=== PATIENT | male | born 1945 | race Caucasian/White ===

== ENCOUNTER → 2016-10-07 | Day surgery (SDC) | payer OTHER ==
[2016-09-08 14:07] VITALS: Ht 167.6 cm; Wt 76.8 kg
[~2016-10-07] VITALS: Ht 167.6 cm; Wt 76.8 kg
[~2016-10-07] MED LIST: 500ML BSS 0.3ML EPI 1:1000PF IRRIG ONE; ACETAMINOPHEN 325 MG TAB PO PRN; AMVISC PLUS 0.8ML SYRINGE INT OCU ONE; ATROPINE SULFATE 0.1 MG/ML 5ML SYR IV PRN; BSS FLUSH ONE; CARV25TA PO; CLOP1TAB54 PO; DIGO0.2518 PO; ENDOCOAT 0.85ML SYRINGE INT OCU ONE; EpHEDrine SULFATE INJ 50 MG/ML AMP IV PRN; EpINEphrine INJ 1MG/ML AMP 1 MG/ML AMP ONE; HYDR-5688 PO; LACTATED RINGER'S 1000ML 500 ML IV SCH; LEVO25TA5 PO; LIDOCAINE 4% OP SOLN DROP CHARGE ONE; LIDOCAINE 4% OP SOLN DROP CHARGE OPR SCH; LIDOCAINE HCL 1% MPF 2 ML VIAL ONE; LISI-729 PO; MIDAZOLAM HCL 1 MG/ML 2ML VIAL ONE; MIX: 4ML BSS 1ML EPI 1:1000 PF TOP ONE; MOXIFLOXACIN OPH SOLN PER DROP CHARGE ONE; NITR0.4S UT; POVIDONE-IODINE OP SOLN 30 ML BTL ONE; PROPARACAINE 0.5% OP SOLN PER DROP CHARGE OPR SCH; ROSU20TA PO; TOBRAMYCIN/DEXAMETHASONE OPH OINT PER APPLN CHARGE ONE
--- NOTE | 2016-10-07 06:45 | History & Physical Bridge - SC ---
H&P Re-Evaluation Bridge Note: I have examined the patient, reviewed the History & Physical and in the interval since the performance of the History & Physical I have noted the following changes of clinical significance: No changes noted. Right eye cataract surgery.
[2016-10-07] MEDS: PHENYLEPHRINE HCL 2.5% OP SOLN PER DROP CHARGE OPR SCH ×3 (07:15→07:25)
[2016-10-07] MEDS: TROPICAMIDE 1% OP SOLN PER DROP CHARGE OPR SCH ×3 (07:16→07:26)
[2016-10-07] MEDS: CYCLOPENTOLATE HCL 1% OP SOLN PER DROP CHARGE OPR SCH ×3 (07:17→07:27)
[2016-10-07] MEDS: MOXIFLOXACIN OPH SOLN PER DROP CHARGE OPR SCH ×3 (07:18→07:28)
--- NOTE | 2016-10-07 08:11 | [facility] Post Operative Brief Note ---
Immediate Operative Summary Operative Date Oct 07, 2016. Pre-Operative Diagnosis Right Eye Cataract Post-Operative Diagnosis same Procedure(s) Performed Right Cataract Phacoemulsification With Intraocular Lens Implant Surgeon Dr. Dinorah High Wet Finisher Wool Surgeon(s) 0 Estimated Blood Loss 0 Findings right cataract Specimens none Complication(s) None Disposition
--- NOTE | 2016-10-07 08:12 | [facility] Operative Report ---
Operative Report Date of Service Oct 07, 2016. Operative Report DATE OF OPERATION: 10/07/16 PREOPERATIVE DIAGNOSIS: Senile nuclear cataract, right eye POSTOPERATIVE DIAGNOSIS: Senile nuclear cataract, right eye PROCEDURE PERFORMED: Phacoemulsification with intraocular lens implantation, right eye SURGEON: Dr. Favian High ANESTHESIA: Topical with 1% intracameral lidocaine COMPLICATIONS: None DESCRIPTION OF PROCEDURE: After positively identifying the patient both verbally and by wristband in the preoperative area, the right eye was marked as the operative eye. The patient was then brought back to the operating room by the nursing staff where they were given a drop of Lidocaine and betadine into the operative eye. They were then sterilely prepped and draped in the standard fashion typical for ophthalmic surgery. Steri-strips were placed along the upper eyelids to keep the lashes back, and a lid speculum was placed into the operative eye. At this point, a documented time out was performed with members of the ophthalmology and nursing staffs all agreeing upon the correct patient, correct location for surgery, correct procedure, and correct type and power of intraocular lens to be implanted. The microscope was then swung into position. First, a paracentesis wound was made using a sideport blade. Then, in sequence, 1% preservative-free lidocaine followed by Endocoat viscoelastic was injected into the anterior chamber. Next , the main incision was made with a keratome blade in triplanar fashion. A sharp cystotome was introduced into the eye and used to create a tear in the anterior capsule, which was directed into a continuous curvilinear capsulorrhexis using Utrata forceps. Hydrodissection was then performed with BSS on a flat-tip cannula. Next, the phacoemulsification handpiece was introduced into the eye and used to remove the nucleus in a [id number] fashion. This was done without complication and then the irrigation-aspiration handpiece was introduced into the eye and used to remove all remaining cortical and epinuclear material. Amvisc was then injected into the anterior chamber as well as into the capsular bag and using the lens injector system, an MX60 20.0 D lens, serial number [id number], and expiration date 04/2019 was injected into the capsular bag and rotated into the correct position. Next, the irrigation- aspiration handpiece was used to remove all remaining Amvisc. BSS was used to hydrate the main wound, and then BSS was injected into the paracentesis site to reach physiologic pressure and then the main wound was checked and found to be watertight. The patient was given drops of Vigamox and Tobradex ointment into the operative eye, and then the surrounding area was cleaned and dried. A clear plastic shield was placed over the eye and the patient was then sat up and taken from the operating room by the nursing staff having tolerated the procedure well and suffering no complications. DISPOSITION: The patient was returned to the recovery room in stable condition. I attest to the content of the Intraoperative Record and any orders documented therein. Any exceptions are noted below.
--- NOTE | 2016-10-07 08:13 | Discharge Instructions-SurgCtr ---
Discharge Instructions Date of Service Oct 07, 2016. Visit Reason for Visit: Cataract Right Eye Discharge Discharge Diagnosis / Problem: right cataract Discharge Goals Goal(s): Decrease discomfort, Improve function Activity Recommendations Activity Limitations: as noted below Anesthesia . Post Anesthesia Instructions: If you have had General Anesthesia or IV Sedation: * Do not drive today. * Resume driving when surgeon permits. * Do not make important decisions or sign legal documents today. * Call surgeon for: 1. Temperature elevations greater than 101 degrees F. 2. Uncontrollable pain. 3. Excessive bleeding. 4. Persistent nausea and vomiting. 5. Medication intolerance (nausea, vomiting or rash). * For nausea and vomiting use only clear liquids such as: tea, soda, bouillon until nausea subsides, then gradually increase diet as tolerated. * If you have any concerns or questions, call your surgeon's office. If physician is unavailable and it is an emergency, call 911 or go to the nearest emergency room. . Instructions / Follow-Up Instructions / Follow-Up ACTIVITY RECOMMENDATIONS: * Light activities. * You may walk outside, read, watch television. * You may notice redness on the white part of the eye and some blurry vision - this is normal. MEDICATIONS: Resume previous medications unless instructed otherwise by your surgeon. Start all eye drops at 10 am today: * Eye drops (today): Prednisone - one drop in operative eye every 2 hours while awake Ofloxacin - one drop in operative eye every 2 hours while awake Ketorolac - one drop in operative eye 4 times daily SPECIAL CARE INSTRUCTIONS: * Tape plastic shield over eye to sleep at night. Call your doctor at with any concerns or problems. FOLLOW UP VISIT: Follow-up with Dr High at [facility] as scheduled. Diet Recommendations Home Diet: no limitations Procedures Procedures Performed: Right Cataract Phacoemulsification With Intraocular Lens Implant Pending Studies Studies pending at discharge: no Medical Emergencies . Who to Call and When: Medical Emergencies: If at any time you feel your situation is an emergency, please call 911 immediately. . Non-Emergent Contact Non-Emergency issues call your: Surgeon . . "Provider Documentation" section prepared by Favian High. .
[2016-10-07 08:14] VITALS: TEMP 36
[2016-10-07 08:45] VITALS: BP 139/95; PULSE 69; O2SAT 98
== END | disposition home or self-care (01) ==
LOC: X.SURG 06:44
PROVIDERS: ATTEND Ophthalmology
DX: H25.11 Age-related nuclear cataract, right eye (principal); Z68.27 Body mass index [BMI] 27.0-27.9, adult; Z79.02 Long term (current) use of antithrombotics/antiplatelets; I25.10 Atherosclerotic heart disease of native coronary artery without angina pectoris

== ENCOUNTER → 2016-10-28 | Outpatient (CLI) | payer OTHER ==
[~2016-10-28] MED LIST changes: -500ML BSS 0.3ML EPI 1:1000PF IRRIG ONE; -ACETAMINOPHEN 325 MG TAB PO PRN; -AMVISC PLUS 0.8ML SYRINGE INT OCU ONE; -ATROPINE SULFATE 0.1 MG/ML 5ML SYR IV PRN; -BSS FLUSH ONE; -ENDOCOAT 0.85ML SYRINGE INT OCU ONE; -EpHEDrine SULFATE INJ 50 MG/ML AMP IV PRN; -EpINEphrine INJ 1MG/ML AMP 1 MG/ML AMP ONE; -LACTATED RINGER'S 1000ML 500 ML IV SCH; -LIDOCAINE 4% OP SOLN DROP CHARGE ONE; -LIDOCAINE 4% OP SOLN DROP CHARGE OPR SCH; -LIDOCAINE HCL 1% MPF 2 ML VIAL ONE; -MIDAZOLAM HCL 1 MG/ML 2ML VIAL ONE; -MIX: 4ML BSS 1ML EPI 1:1000 PF TOP ONE; -MOXIFLOXACIN OPH SOLN PER DROP CHARGE ONE; -POVIDONE-IODINE OP SOLN 30 ML BTL ONE; -PROPARACAINE 0.5% OP SOLN PER DROP CHARGE OPR SCH; -TOBRAMYCIN/DEXAMETHASONE OPH OINT PER APPLN CHARGE ONE
== END | disposition home or self-care (01) ==
LOC: C.LABSPEC 11:16
PROVIDERS: ATTEND Ophthalmology
DX: H16.011 Central corneal ulcer, right eye (principal)

== ENCOUNTER 2019-01-03 15:14 | Inpatient (IN) ==
[2019-01-03] MEDS ORDERED: SODIUM CHLORIDE 0.9% 500 ML IV ONE (16:02)
[2019-01-03 16:18] LABS: Basophils # (auto) 0.02 K/uL (0-0.2); Basophils % (auto) 0.2 %; Eosinophils # (auto) 0.06 K/uL (0-0.5); Eosinophils % (auto) 0.6 %; Hematocrit (blood only) 36.2 % (42-52); Immature Granulocytes # (auto) 0.04 K/uL (0.00-0.02); Immature Granulocytes % (auto) 0.4 %; Lymphocytes # (auto) 1.52 K/uL (1.2-3.4); Lymphocytes % (auto) 15.4 %; Mean Corpuscular Hemoglobin 30.7 pg (25-34); Mean Corpuscular Hgb Conc 33.1 g/dL (32-36); Mean Corpuscular Volume 92.6 fL (80-100); Mean Platelet Volume 9.3 fL (7.4-10.4); Monocytes # (auto) 1.16 K/uL (0.11-0.59); Monocytes % (auto) 11.7 %; Neutrophils % (auto) 71.7 %; Platelet Count 194 K/uL (130-400); RDW Standard Deviation 47.1 fL (36.4-46.3); Red Blood Count 3.91 M/uL (4.7-6.1)
--- NOTE | 2019-01-03 16:28 | XRay Report ---
XR chest 1V portable CLINICAL HISTORY: Sepsis COMPARISON STUDY: Chest radiograph May 12, 2013. FINDINGS: A left subclavian biventricular pacer/AICD is in place. Cardiomediastinal silhouette is unr emarkable. There is no evidence for pulmonary edema. There is a trace right pleural effusion. There i s no pneumothorax. No consolidation is identified to suggest pneumonia. IMPRESSION: Trace right pleural effusion. Electronically signed by: Ho Viveros M.D. 01/03/2019 4:26 PM
[2019-01-03 16:39] LABS: Albumin Level 2.2 gm/dl (3.4-5.0); BUN Creatinine Ratio 24.8 (10-20); Creatinine Clr Calc Pharmacy 117.5 ml/min; Est GFR (African American) 119.7; Est GFR (Non-African American) 103.3; Magnesium 1.9 mg/dl (1.8-2.4); Potassium 4.3 mmol/L (3.5-5.1)
[2019-01-03] MEDS ORDERED: OPTIRAY 320 125ml IV PRN (16:46)
[2019-01-03 16:50] LABS: Albumin Globulin Ratio 0.5 (0.9-2); Bilirubin,Total 0.8 mg/dl (0.2-1); Globulin 4.3 gm/dl (2.5-4.0); Phosphorus 2.9 mg/dl (2.5-4.9); Thyroid Stimulating Hormone 0.207 uIu/ml (0.300-4.500); Total Protein 6.5 gm/dl (6.4-8.2)
[2019-01-03 17:03] LABS: Appearance Urine Clear (Clear); Bilirubin Urine Negative (Negative); Blood Urine Negative (Negative); Color Urine Yellow; Glucose Urine UA Negative (Negative); Ketones Urine Negative (Negative); Leukocyte Esterase Urine Negative (Negative); Nitrite Urine Negative (Negative); Protein Urine Negative (Negative); Specific Gravity Urine 1.021 (1.000-1.030); Urobilinogen Urine Negative (Negative); pH Urine 6.5 (4.5-7.5)
--- NOTE | 2019-01-03 17:03 | CT Scan Report ---
CT head/brain wo con CLINICAL HISTORY: 73 years-old Male presenting with ams. TECHNIQUE: Multidetector CT imaging of the head was performed without the use of intravenous contrast . IV contrast: None. One or more dose lowering techniques were used consistent with the principles of ALARA (as low as reasonably achievable), including automatic exposure control, mA or kV adjustment t o individual patient size, and/or use of iterative reconstruction. COMPARISON: 06/16/2012. CT DOSE (mGy.cm): The estimated cumulative dose is 1649.40 mGy.cm. FINDINGS: Cma topogram: Left subclavian implanted cardiac defibrillator. Proportional ventricular and sulcal prominence, likely age-related parenchymal volume loss. No hemorr earl. Encephalomalacia in the lateral aspect of the right cerebellar hemisphere. Periventricular and subcortical white matter hypoattenuation nonspecific though likely chronic small vessel ischemic corado ge. No acute territorial infarct. No mass effect or midline shift. No extra-axial fluid collection. P aranasal sinuses and mastoid air cells clear. Right occipital craniectomy. IMPRESSION: 1. Chronic small vessel ischemic change and right cerebellar hemisphere and septal malacia unchanged from prior exam. No acute intracranial abnormality. Electronically signed by: Fabian Tuttle M.D. 01/03/2019 5:02 PM
[2019-01-03 17:05] LABS: T4 Free Thyroxine 1.27 ng/dl (0.8-1.6)
--- NOTE | 2019-01-03 17:11 | CT Scan Report ---
CT abd pelvis IV con only CLINICAL HISTORY: 73 years-old Male presenting with AMS, fever, sob, h/o spinal abscess. TECHNIQUE: Multidetector CT of the abdomen and pelvis was performed after the administration of intra venous contrast. IV contrast: 119 mL of Optiray 320. One or more dose lowering techniques were used c onsistent with the principles of ALARA (as low as reasonably achievable), including automatic exposur e control, mA or kV adjustment to individual patient size, and/or use of iterative reconstruction. COMPARISON: 06/08/2012. CT DOSE (mGy.cm): The estimated cumulative dose is 1649.40. FINDINGS: Climatology Professor topogram: Left subclavian implanted cardiac defibrillator. Lung bases: Defibrillator leads to the residual pin image, right ventricular apex, and coronary sinus . Aortic valve and coronary artery calcification. Small right pleural effusion. Dependent change in t he right lower lobe likely passive atelectasis. Liver: Normal morphology. Density suggestive of hepatic steatosis. No focal lesion. Patent hepatic va sculature. Biliary: No intrahepatic or extrahepatic biliary ductal dilatation. Gallbladder wall thickening sugge sted though there is significant motion artifact in the upper abdomen. The gallbladder is nondistende d. Pancreas: Normal. Spleen: Normal. Adrenal glands: Normal. Kidneys and ureters: Few cysts suggested in the left kidney. Renal parenchyma otherwise normal. No ne phrolithiasis or hydronephrosis. Ureters nondistended. Bladder: Circumferential bladder wall thickening. Bai catheter decompresses the urinary bladder. Pelvic organs: Prostate and seminal vesicles normal. Bowel: Large stool burden in the rectum with a mild stool burden in the remainder of the colon. No re ctal wall thickening or perirectal fat infiltration. Few scattered colonic diverticula noted. The zak endix is normal. No bowel obstruction. Peritoneal cavity: No free fluid or intraperitoneal gas. Lymph nodes: No enlarged lymph nodes in the abdomen or pelvis. Vasculature: Atherosclerosis of the tortuous and mildly ectatic abdominal aorta, which measures up to 3.2 cm in diameter. Prominent mural thrombus/noncalcified plaque (series 8 image 151). Abdominal wall: Small fat-containing inguinal hernias right greater than left. Mild body wall edema. Musculoskeletal: Extensive postsurgical changes in the spine with laminectomy defects. Few punctate m etallic foci may represent catheters or other prior implanted material. Extensive overlying infiltrat radha changes compatible with scarring. The spinal canal and paraspinal region is suboptimally assessed by CT. No gross evidence of a large rim-enhancing collection is suggest abscess though there is limi raj sensitivity for this diagnosis. IMPRESSION: 1. Limited sensitivity for the diagnosis of spinal abscess by CT. If there is continuing clinical co ncern for this, contrast enhanced MRI would be recommended. 2. Significant degenerative change and postsurgical change of the spine makes evaluation limited. 3. Metallic foreign bodies within the spinal canal may relate to a current or prior implanted cathet er or other device. 4. Abdominal aortic aneurysm measuring up to 3.2 cm with significant tortuosity and mural thrombus/n oncalcified plaque. 5. Hepatic steatosis. 6. Stool burden suggests constipation most prominently in the rectum. 7. Circumferential bladder wall thickening may indicate chronic bladder outlet obstruction or cystit is. Correlate with urinalysis. Electronically signed by: Fabian Tuttle M.D. 01/03/2019 5:10 PM
--- NOTE | 2019-01-03 17:16 | CT Scan Report ---
CT ANGIOGRAPHY OF THE CHEST, PULMONARY EMBOLUS PROTOCOL CLINICAL HISTORY: Fever. Shortness of breath. History of spinal abscess. COMPARISON STUDY: Chest radiograph 05/12/2013 and January 03, 2019. TECHNIQUE: Following IV administration of 119 mL of Optiray-320, helical axial images of the chest we re obtained utilizing the pulmonary embolus protocol. Maximal intensity projections and sagittal and coronal reformats were viewed on an independent 3D workstation. IV contrast was administered withou t complication. Automated exposure control was utilized for the study. A dose lowering technique wa s utilized adhering to the principles of ALARA. FINDINGS: The central pulmonary arteries are mildly dilated. No central pulmonary emboli are identifi ed. This exam is significantly compromised by respiratory motion artifact. The lobar, segmental and s ubsegmental pulmonary arteries are suboptimally assessed on this exam. A left subclavian biventricula r pacer/AICD is in place. The heart is mildly enlarged. There is no pericardial effusion. There is ex tensive coronary artery calcification and extensive aortic valvular calcification. No enlarged thorac ic lymph nodes are present. A small right pleural effusion is noted. There is no pneumothorax. Modera te to severe emphysema is noted. Note is made of an irregular solid and groundglass left lower lobe n odule that measures 2.8 x 1.9 cm. There is suspected associated fissural retraction. Right lower lobe opacity favors atelectasis. The central airways are patent. No suspicious osseous lesions are noted. Right lobe thyroid nodule is noted. Postoperative findings within the thoracolumbar spine are subopt imally assessed by CT. Osseous irregularity of the lower thoracic and lumbar spine is noted. The abdo men and pelvis will be reported separately. IMPRESSION: 1. No central pulmonary emboli. Remainder of pulmonary arteries inadequately assessed due to respirat ory motion artifact. 2. 2.8 x 1.9 cm irregular left lower lobe pulmonary nodule highly suggestive of a primary lung malign karla. Pulmonary consultation is recommended. 3. Moderate to severe emphysema. 4. Small right pleural effusion. 5. Postoperative findings within the thoracolumbar spine which are suboptimally assessed by CT. Subop timal evaluation of the spinal canal given CT. Electronically signed by: Ho Viveros M.D. 01/03/2019 5:14 PM
[2019-01-03 17:44] LABS: INR 1.2 (0.9-1.1); Partial Thromboplastin Time 27.6 Seconds (21.0-31.0); Prothrombin Time 12.3 Seconds (9.0-12.0)
[2019-01-03] MEDS ORDERED: PIPERACILLIN/TAZOBACTAM 4.5 GM/120 ML BAG IV ONE (19:05)
[2019-01-03] MEDS ORDERED: VANCOMYCIN CONSULT ACTIVE PRN (19:05)
[2019-01-03] MEDS ORDERED: VANCOMYCIN HCL 1,500 MG in SODIUM CHLORIDE 0.9% 500 ML IV ONE (19:05)
[2019-01-03] MEDS ORDERED: ACETAMINOPHEN 325 MG TAB PO STA (19:29)
--- NOTE | 2019-01-03 19:50 | Emergency Department Note ---
Entered by Darin Patel acting as a scribe for Aditya Melendez MD History of Present Illness General Chief complaint: Altered Mental Status Stated complaint: AMS, ALOC, URINARY SX Time Seen by Provider: 01/03/19 15:42 Source: patient History of Present Illness Provider complaint: AMS Onset (ago): hour(s) less than 1 Location: head Radiation: non-radiation Pain Consistency: + constant Relieved By: + none Exacerbated By: + none Associated symptoms: + denies other symptoms The patient is a 73 y/o male who presents to the emergency department for evaluation of constant altered mental status that began prior to arrival. The patient states that he feels a little confused. The patient does not believe he uses oxygen at home. He notes that his legs are a little swollen. He denies a cough, congestion, vomiting, and any other symptoms. More detailed history was provided by the patient's son who later arrived at the bedside saying that the patient has a worsening decline in his functional status over the past couple of weeks with intermittent confusion over the past 5 days. Patient symptoms occur in the setting of recent admission in November to [facility] for question of a spinal abscess which was evaluated by neurosurgery and it was determined that surgery was not required and was treated with antibiotics with improvement and subsequently referred to the wound center for continued monitoring. The son confirms patient's prior remote h/o neuroma resection with subsequent chronic right facial droop and ptosis. Home Medications Home Medications Medication Instructions Recorded Confirmed Type acetaminophen 325 mg capsule 650 mg PO Q4H PRN cap 12/06/18 01/03/19 History bisacodyl 10 mg rectal suppository 10 mg MO DAILY PRN 12/06/18 01/03/19 History carvedilol 12.5 mg tablet 12.5 mg PO BID 12/06/18 01/03/19 History clopidogrel 75 mg tablet 75 mg PO DAILY 12/06/18 01/03/19 History digoxin 250 mcg tablet 250 mcg PO DAILY 12/06/18 01/03/19 History enoxaparin 40 mg/0.4 mL 40 mg SQ DAILY 12/06/18 01/03/19 History subcutaneous syringe lisinopril 5 mg tablet 5 mg PO DAILY 12/06/18 01/03/19 History lovastatin 10 mg tablet 10 mg PO DAILY 12/06/18 01/03/19 History mirtazapine 7.5 mg tablet 7.5 mg PO DAILY 12/06/18 01/03/19 History polyethylene glycol 3350 17 8.5 gm PO DAILY PRN 12/06/18 01/03/19 History gram/dose oral powder pravastatin 10 mg tablet 10 mg PO DAILY 12/06/18 01/03/19 History sennosides 8.6 mg-docusate sodium 1 tab PO BID PRN 12/06/18 01/03/19 History 50 mg tablet hydrocodone-acetaminophen 1 tab PO Q6H PRN 01/03/19 01/03/19 History levothyroxine 50 mcg PO DAILY 01/03/19 01/03/19 History rosuvastatin 20 mg PO DAILY 01/03/19 01/03/19 History Allergies Allergy/AdvReac Type Severity Reaction Status Date / Time No Known Allergies Allergy Verified 01/03/19 16:56 Past Med/Surg History Medical History A-fib (Chronic) CHF (congestive heart failure) (Chronic) Facial droop (Chronic) Ischemic cardiomyopathy (Chronic) Pacemaker (Chronic) TIA (transient ischemic attack) (Chronic) 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 pt confused. current occupational status: disabled Feels Safe at Home: Yes Smoking Status: Unknown if ever smoked Review of Systems See HPI for pertinent positives & negatives. and A total of 10 systems reviewed and were otherwise negative Physical Exam Vital Signs Vital Signs - 24 hr 01/03/19 15:33 01/03/19 15:34 01/03/19 15:40 Temperature 37.7 C H Temperature Source Rectal Sepsis Recent Fever Within 48 Hours No Sepsis New/Unexplained Change in Mental Status Yes Sepsis Action Taken by Nursing No Action Required Oxygen Flow Rate - Titration Pulse Oximetry Post Tiitration Pulse Rate 72 71 74 Pulse Rate [Apical] Pulse Rate from SpO2 Sensor 71 71 Respiratory Rate 15 17 18 Respiratory Effort / Characteristics Non-Labored Spontaneous Respiratory Depth Normal Blood Pressure 100/47 L 100/49 L Blood Pressure [Left Arm] Blood Pressure Mean 64 66 Blood Pressure Mean [Left Arm] Pulse Oximetry 88 L 90 88 L Oxygen Delivery Method Room Air Oxygen Flow Rate 01/03/19 15:45 01/03/19 15:46 01/03/19 15:52 Temperature Temperature Source Sepsis Recent Fever Within 48 Hours Sepsis New/Unexplained Change in Mental Status Sepsis Action Taken by Nursing Oxygen Flow Rate - Titration 2 Pulse Oximetry Post Tiitration 94 Pulse Rate 67 68 Pulse Rate [Apical] 67 Pulse Rate from SpO2 Sensor 66 66 Respiratory Rate 17 13 18 Respiratory Effort / Characteristics Respiratory Depth Normal Blood Pressure 91/47 L Blood Pressure [Left Arm] 91/47 L Blood Pressure Mean 61 Blood Pressure Mean [Left Arm] 61 Pulse Oximetry 93 94 96 Oxygen Delivery Method Nasal Cannula Oxygen Flow Rate 2 01/03/19 16:00 01/03/19 16:01 01/03/19 16:07 Temperature Temperature Source Sepsis Recent Fever Within 48 Hours Sepsis New/Unexplained Change in Mental Status Sepsis Action Taken by Nursing Oxygen Flow Rate - Titration Pulse Oximetry Post Tiitration Pulse Rate Pulse Rate [Apical] Pulse Rate from SpO2 Sensor 63 66 63 Respiratory Rate Respiratory Effort / Characteristics Respiratory Depth Blood Pressure 115/38 L 97/43 L Blood Pressure [Left Arm] Blood Pressure Mean 63 61 Blood Pressure Mean [Left Arm] Pulse Oximetry 93 96 95 Oxygen Delivery Method Oxygen Flow Rate 01/03/19 16:11 01/03/19 16:15 01/03/19 16:17 Temperature Temperature Source Sepsis Recent Fever Within 48 Hours Sepsis New/Unexplained Change in Mental Status Sepsis Action Taken by Nursing Oxygen Flow Rate - Titration Pulse Oximetry Post Tiitration Pulse Rate 79 66 Pulse Rate [Apical] Pulse Rate from SpO2 Sensor 79 65 Respiratory Rate Respiratory Effort / Characteristics Respiratory Depth Blood Pressure Blood Pressure [Left Arm] Blood Pressure Mean Blood Pressure Mean [Left Arm] Pulse Oximetry 96 94 97 Oxygen Delivery Method Nasal Cannula Oxygen Flow Rate 2 01/03/19 16:29 01/03/19 16:30 01/03/19 16:31 Temperature Temperature Source Sepsis Recent Fever Within 48 Hours Sepsis New/Unexplained Change in Mental Status Sepsis Action Taken by Nursing Oxygen Flow Rate - Titration Pulse Oximetry Post Tiitration Pulse Rate 69 78 64 Pulse Rate [Apical] Pulse Rate from SpO2 Sensor 69 66 64 Respiratory Rate 18 19 14 Respiratory Effort / Characteristics Respiratory Depth Blood Pressure 109/50 L 100/69 Blood Pressure [Left Arm] Blood Pressure Mean 69 79 Blood Pressure Mean [Left Arm] Pulse Oximetry 97 97 98 Oxygen Delivery Method Oxygen Flow Rate 01/03/19 17:03 01/03/19 17:07 01/03/19 17:08 Temperature Temperature Source Sepsis Recent Fever Within 48 Hours Sepsis New/Unexplained Change in Mental Status Sepsis Action Taken by Nursing Oxygen Flow Rate - Titration Pulse Oximetry Post Tiitration Pulse Rate 78 77 70 Pulse Rate [Apical] Pulse Rate from SpO2 Sensor 77 70 Respiratory Rate 23 20 Respiratory Effort / Characteristics Respiratory Depth Blood Pressure 134/55 L Blood Pressure [Left Arm] Blood Pressure Mean 81 Blood Pressure Mean [Left Arm] Pulse Oximetry 97 98 Oxygen Delivery Method Oxygen Flow Rate 01/03/19 17:15 01/03/19 17:30 01/03/19 17:31 Temperature Temperature Source Sepsis Recent Fever Within 48 Hours Sepsis New/Unexplained Change in Mental Status Sepsis Action Taken by Nursing Oxygen Flow Rate - Titration Pulse Oximetry Post Tiitration Pulse Rate 66 64 Pulse Rate [Apical] Pulse Rate from SpO2 Sensor 65 63 64 Respiratory Rate 18 24 24 Respiratory Effort / Characteristics Respiratory Depth Blood Pressure 121/42 L Blood Pressure [Left Arm] Blood Pressure Mean 68 Blood Pressure Mean [Left Arm] Pulse Oximetry 97 100 97 Oxygen Delivery Method Oxygen Flow Rate 01/03/19 17:32 01/03/19 17:45 01/03/19 18:00 Temperature Temperature Source Sepsis Recent Fever Within 48 Hours Sepsis New/Unexplained Change in Mental Status Sepsis Action Taken by Nursing Oxygen Flow Rate - Titration Pulse Oximetry Post Tiitration Pulse Rate 60 79 Pulse Rate [Apical] Pulse Rate from SpO2 Sensor 70 60 83 Respiratory Rate 20 19 22 Respiratory Effort / Characteristics Respiratory Depth Blood Pressure 120/43 L Blood Pressure [Left Arm] Blood Pressure Mean 68 Blood Pressure Mean [Left Arm] Pulse Oximetry 96 97 92 Oxygen Delivery Method Oxygen Flow Rate 01/03/19 18:14 01/03/19 18:15 01/03/19 18:30 Temperature Temperature Source Sepsis Recent Fever Within 48 Hours Sepsis New/Unexplained Change in Mental Status Sepsis Action Taken by Nursing Oxygen Flow Rate - Titration Pulse Oximetry Post Tiitration Pulse Rate 65 70 67 Pulse Rate [Apical] Pulse Rate from SpO2 Sensor 66 70 77 Respiratory Rate 23 19 23 Respiratory Effort / Characteristics Respiratory Depth Blood Pressure 103/44 L Blood Pressure [Left Arm] Blood Pressure Mean 63 Blood Pressure Mean [Left Arm] Pulse Oximetry 98 97 96 Oxygen Delivery Method Oxygen Flow Rate 01/03/19 18:31 01/03/19 18:38 01/03/19 18:45 Temperature Temperature Source Sepsis Recent Fever Within 48 Hours Sepsis New/Unexplained Change in Mental Status Sepsis Action Taken by Nursing Oxygen Flow Rate - Titration Pulse Oximetry Post Tiitration Pulse Rate 64 Pulse Rate [Apical] Pulse Rate from SpO2 Sensor 64 67 67 Respiratory Rate 22 Respiratory Effort / Characteristics Respiratory Depth Blood Pressure 125/49 L 123/58 L 116/53 L Blood Pressure [Left Arm] Blood Pressure Mean 74 79 74 Blood Pressure Mean [Left Arm] Pulse Oximetry 96 97 98 Oxygen Delivery Method Oxygen Flow Rate 01/03/19 19:00 01/03/19 19:15 01/03/19 19:30 Temperature Temperature Source Sepsis Recent Fever Within 48 Hours Sepsis New/Unexplained Change in Mental Status Sepsis Action Taken by Nursing Oxygen Flow Rate - Titration Pulse Oximetry Post Tiitration Pulse Rate Pulse Rate [Apical] Pulse Rate from SpO2 Sensor 63 67 62 Respiratory Rate Respiratory Effort / Characteristics Respiratory Depth Blood Pressure 113/52 L 121/63 Blood Pressure [Left Arm] Blood Pressure Mean 72 82 Blood Pressure Mean [Left Arm] Pulse Oximetry 96 98 96 Oxygen Delivery Method Oxygen Flow Rate 01/03/19 19:45 01/03/19 20:00 01/03/19 20:02 Temperature Temperature Source Sepsis Recent Fever Within 48 Hours Sepsis New/Unexplained Change in Mental Status Sepsis Action Taken by Nursing Oxygen Flow Rate - Titration Pulse Oximetry Post Tiitration Pulse Rate Pulse Rate [Apical] Pulse Rate from SpO2 Sensor 68 69 65 Respiratory Rate Respiratory Effort / Characteristics Respiratory Depth Blood Pressure 118/59 L 110/57 L Blood Pressure [Left Arm] Blood Pressure Mean 78 74 Blood Pressure Mean [Left Arm] Pulse Oximetry 94 98 96 Oxygen Delivery Method Oxygen Flow Rate GENERAL: Awake, alert, chronically ill-appearing, in no distress HENT: Normocephalic, atraumatic. Oropharynx unremarkable. Mucous membranes dry. EYES: Normal conjunctiva. Sclera non-icteric. NECK: Supple. No nuchal rigidity. FROM. No JVD. RESPIRATORY: Clear to auscultation bilaterally CARDIAC: Regular rate, normal rhythm. Extremities warm and well perfused. Pulses equal. ABDOMEN: Soft, non-distended. No tenderness to palpation. No rebound or guarding. No masses. RECTAL: Deferred. MUSCULOSKELETAL: Chest examination reveals no tenderness. The back is symmetrical on inspection without obvious abnormality. There is no CVA tender ness to palpation. No joint edema. Punctate tunneling ulcer of the back, pressure sore of the right mid-medial calf. LOWER EXTREMITIES: Calves are equal size bilaterally and non-tender. 2+ bilateral pitting edema. No discoloration. NEURO: Normal sensorium. No new sensory or motor deficits noted. Chronic right facial droop/ptosis. 4/5 strength BUE. 2-3/5 strength BLE SKIN: No rash or jaundice noted. Course 1552: Past medical records reviewed. The patient was evaluated in room C03. A complete history and physical exam was performed. 1626: History reviewed from outside hospital showed: spine tumor S\P 40 years ago, Chronic right facial droop, Chronic lower extremity edema, S/P ICD, Pacemaker for ischemic cardiomyopathy. 1844: I checked on the patient and updated him on his results. Administered Medications Carvedilol (Coreg) 12.5 mg PO BID LADAN Stop: 02/02/19 22:34 Last Admin: 01/03/19 23:09 Dose: Not Given Documented by: [id number] Lactated Ringer's (Lr) 1,000 mls @ 50 mls/hr IV .Q20H ONE Stop: 01/04/19 18:34 Last Admin: 01/03/19 23:01 Dose: 50 mls/hr Documented by: [id number] Discontinued Medications Acetaminophen (Tylenol) 650 mg PO NOW STA Stop: 01/03/19 19:30 Last Admin: 01/03/19 19:45 Dose: 650 mg Documented by: [id number] Sodium Chloride (Nss) 500 mls @ 999 mls/hr IV .Q31M ONE Stop: 01/03/19 16:32 Last Infusion: 01/03/19 17:15 Dose: 0 mls/hr Documented by: [id number] Admin: 01/03/19 16:42 Dose: 999 mls/hr Documented by: [id number] Piperacillin Sod/Tazobactam Sod (Zosyn) 4.5 gm in 120 mls @ 30 mls/hr IV NOW ONE Stop: 01/03/19 23:04 Last Infusion: 01/03/19 23:34 Dose: 0 mls/hr Documented by: [id number] Admin: 01/03/19 19:15 Dose: 30 mls/hr Documented by: [id number] Vancomycin HCl 1,500 mg/ (Sodium Chloride) 530 mls @ 200 mls/hr IV NOW ONE Stop: 01/03/19 21:43 Last Infusion: 01/03/19 23:09 Dose: 0 mls/hr Documented by: [id number] Admin: 01/03/19 20:03 Dose: 200 mls/hr Documented by: [id number] Ioversol (Optiray 320 125ml) 119 ml IV ONCE PRN PRN Reason: Interaction Checking Stop: 01/07/19 16:45 Last Admin: 01/03/19 16:47 Dose: 119 ml Documented by: [id number] Medical Decision Making Differential Diagnosis Differential includes acute coronary syndrome, myocardial infarction, CVA, TIA, anemia, infection, pneumonia, UTI, pyelonephritis, poor nutrition, dehydration, electrolyte disturbance,hypoglycemia. Medical Records Attestation: I reviewed the patient's medical records. Home Medications Current Medication List: was personally reviewed by me Laboratory Data Attestation: I reviewed the patient's lab results. Result diagrams: 01/03/19 14:40 01/03/19 14:40 Lab Results 01/03/19 01/03/19 01/03/19 Range/Units 14:40 14:40 14:40 WBC 9.90 (4.8-10.8) K/uL RBC 3.91 L (4.7-6.1) M/uL Hgb 12.0 L (14.0-18.0) g/dL Hct 36.2 L (42-52) % MCV 92.6 (80-100) fL MCH 30.7 (25-34) pg MCHC 33.1 (32-36) g/dL RDW Std Deviation 47.1 H (36.4-46.3) fL RDW Coeff of Wilfrid 14.0 (11.5-14.5) % Plt Count 194 (130-400) K/uL MPV 9.3 (7.4-10.4) fL Immature Gran % (Auto) 0.4 % Neut % (Auto) 71.7 % Lymph % (Auto) 15.4 % [place] % (Auto) 11.7 % Eos % (Auto) 0.6 % Baso % (Auto) 0.2 % Reticulocyte % (Auto) (0.5-2.0) % Immature Gran # (Auto) 0.04 H (0.00-0.02) K/uL Neut # (Auto) 7.10 H (1.4-6.5) K/uL Lymph # (Auto) 1.52 (1.2-3.4) K/uL [place] # (Auto) 1.16 H (0.11-0.59) K/uL Eos # (Auto) 0.06 (0-0.5) K/uL Baso # (Auto) 0.02 (0-0.2) K/uL Reticulocyte # (0.02-0.10) 10^6/uL PT Cancelled INR Cancelled APTT Cancelled PTT Ratio Cancelled Sodium 140 (136-145) mmol/L Potassium 4.3 (3.5-5.1) mmol/L Chloride 103 (98-107) mmol/L Carbon Dioxide 29 (21-32) mmol/L Anion Gap 8.0 (3-11) BUN 14 (7-18) mg/dl Creatinine 0.57 L (0.6-1.4) mg/dl Est Cr Clr Drug Dosing 117.5 ml/min Est GFR ( Amer) 119.7 Est GFR (Non-Af Amer) 103.3 BUN/Creatinine Ratio 24.8 H (10-20) Glucose 95 (70-99) mg/dl Lactate (0.4-2.0) mmol/L Calcium 8.0 L (8.5-10.1) mg/dl Phosphorus 2.9 (2.5-4.9) mg/dl Magnesium 1.9 (1.8-2.4) mg/dl Iron (35-175) mcg/dl TIBC (250-450) mcg/dl Transferrin (200-360) mg/dl Ferritin (8-388) ng/ml Total Bilirubin 0.8 (0.2-1) mg/dl AST 44 H (15-37) U/L ALT 42 (12-78) U/L Alkaline Phosphatase 161 H (45-117) U/L Ammonia (11-32) umol/L Total Creatine Kinase 340 H (39-308) U/L Troponin I (0-0.045) ng/ml NT-Pro-B Natriuret Pep 720 (0-900) pg/ml Total Protein 6.5 (6.4-8.2) gm/dl Albumin 2.2 L (3.4-5.0) gm/dl Globulin 4.3 H (2.5-4.0) gm/dl Albumin/Globulin Ratio 0.5 L (0.9-2) Vitamin B12 (211-911) pg/ml Folate (>5.38) ng/ml Procalcitonin (0-0.5) ng/ml TSH 0.207 L (0.300-4.500) uIu/ml Free T4 1.27 (0.8-1.6) ng/dl Total T3 (0.60-1.81) ng/ml Urine Color Urine Appearance (Clear) Urine pH (4.5-7.5) Ur Specific [place] (1.000-1.030) Urine Protein (Negative) Urine Glucose (UA) (Negative) Urine Ketones (Negative) Urine Blood (Negative) Urine Nitrite (Negative) Urine Bilirubin (Negative) Urine Urobilinogen (Negative) Ur Leukocyte Esterase (Negative) Digoxin (0.8-2.0) ng/ml Blood Type Antibody Screen 01/03/19 01/03/19 01/03/19 Range/Units 14:40 15:30 17:14 WBC (4.8-10.8) K/uL RBC (4.7-6.1) M/uL Hgb (14.0-18.0) g/dL Hct (42-52) % MCV (80-100) fL MCH (25-34) pg MCHC (32-36) g/dL RDW Std Deviation (36.4-46.3) fL RDW Coeff of Wilfrid (11.5-14.5) % Plt Count (130-400) K/uL MPV (7.4-10.4) fL Immature Gran % (Auto) % Neut % (Auto) % Lymph % (Auto) % [place] % (Auto) % Eos % (Auto) % Baso % (Auto) % Reticulocyte % (Auto) (0.5-2.0) % Immature Gran # (Auto) (0.00-0.02) K/uL Neut # (Auto) (1.4-6.5) K/uL Lymph # (Auto) (1.2-3.4) K/uL [place] # (Auto) (0.11-0.59) K/uL Eos # (Auto) (0-0.5) K/uL Baso # (Auto) (0-0.2) K/uL Reticulocyte # (0.02-0.10) 10^6/uL PT INR APTT PTT Ratio Sodium (136-145) mmol/L Potassium (3.5-5.1) mmol/L Chloride (98-107) mmol/L Carbon Dioxide (21-32) mmol/L Anion Gap (3-11) BUN (7-18) mg/dl Creatinine (0.6-1.4) mg/dl Est Cr Clr Drug Dosing ml/min Est GFR ( Amer) Est GFR (Non-Af Amer) BUN/Creatinine Ratio (10-20) Glucose (70-99) mg/dl Lactate 1.0 (0.4-2.0) mmol/L Calcium (8.5-10.1) mg/dl Phosphorus (2.5-4.9) mg/dl Magnesium (1.8-2.4) mg/dl Iron (35-175) mcg/dl TIBC (250-450) mcg/dl Transferrin (200-360) mg/dl Ferritin (8-388) ng/ml Total Bilirubin (0.2-1) mg/dl AST (15-37) U/L ALT (12-78) U/L Alkaline Phosphatase (45-117) U/L Ammonia (11-32) umol/L Total Creatine Kinase (39-308) U/L Troponin I (0-0.045) ng/ml NT-Pro-B Natriuret Pep (0-900) pg/ml Total Protein (6.4-8.2) gm/dl Albumin (3.4-5.0) gm/dl Globulin (2.5-4.0) gm/dl Albumin/Globulin Ratio (0.9-2) Vitamin B12 (211-911) pg/ml Folate (>5.38) ng/ml Procalcitonin (0-0.5) ng/ml TSH (0.300-4.500) uIu/ml Free T4 (0.8-1.6) ng/dl Total T3 (0.60-1.81) ng/ml Urine Color Yellow Urine Appearance Clear (Clear) Urine pH 6.5 (4.5-7.5) Ur Specific [place] 1.021 (1.000-1.030) Urine Protein Negative (Negative) Urine Glucose (UA) Negative (Negative) Urine Ketones Negative (Negative) Urine Blood Negative (Negative) Urine Nitrite Negative (Negative) Urine Bilirubin Negative (Negative) Urine Urobilinogen Negative (Negative) Ur Leukocyte Esterase Negative (Negative) Digoxin 1.7 (0.8-2.0) ng/ml Blood Type Antibody Screen 01/03/19 01/03/19 01/03/19 Range/Units 17:14 19:52 19:52 WBC (4.8-10.8) K/uL RBC (4.7-6.1) M/uL Hgb (14.0-18.0) g/dL Hct (42-52) % MCV (80-100) fL MCH (25-34) pg MCHC (32-36) g/dL RDW Std Deviation (36.4-46.3) fL RDW Coeff of Wilfrid (11.5-14.5) % Plt Count (130-400) K/uL MPV (7.4-10.4) fL Immature Gran % (Auto) % Neut % (Auto) % Lymph % (Auto) % [place] % (Auto) % Eos % (Auto) % Baso % (Auto) % Reticulocyte % (Auto) (0.5-2.0) % Immature Gran # (Auto) (0.00-0.02) K/uL Neut # (Auto) (1.4-6.5) K/uL Lymph # (Auto) (1.2-3.4) K/uL [place] # (Auto) (0.11-0.59) K/uL Eos # (Auto) (0-0.5) K/uL Baso # (Auto) (0-0.2) K/uL Reticulocyte # (0.02-0.10) 10^6/uL PT 12.3 H INR 1.2 H APTT 27.6 PTT Ratio 1.0 Sodium (136-145) mmol/L Potassium (3.5-5.1) mmol/L Chloride (98-107) mmol/L Carbon Dioxide (21-32) mmol/L Anion Gap (3-11) BUN (7-18) mg/dl Creatinine (0.6-1.4) mg/dl Est Cr Clr Drug Dosing ml/min Est GFR ( Amer) Est GFR (Non-Af Amer) BUN/Creatinine Ratio (10-20) Glucose (70-99) mg/dl Lactate (0.4-2.0) mmol/L Calcium (8.5-10.1) mg/dl Phosphorus (2.5-4.9) mg/dl Magnesium (1.8-2.4) mg/dl Iron (35-175) mcg/dl TIBC (250-450) mcg/dl Transferrin (200-360) mg/dl Ferritin (8-388) ng/ml Total Bilirubin (0.2-1) mg/dl AST (15-37) U/L ALT (12-78) U/L Alkaline Phosphatase (45-117) U/L Ammonia (11-32) umol/L Total Creatine Kinase (39-308) U/L Troponin I < 0.015 (0-0.045) ng/ml NT-Pro-B Natriuret Pep (0-900) pg/ml Total Protein (6.4-8.2) gm/dl Albumin (3.4-5.0) gm/dl Globulin (2.5-4.0) gm/dl Albumin/Globulin Ratio (0.9-2) Vitamin B12 (211-911) pg/ml Folate (>5.38) ng/ml Procalcitonin (0-0.5) ng/ml TSH (0.300-4.500) uIu/ml Free T4 (0.8-1.6) ng/dl Total T3 0.88 (0.60-1.81) ng/ml Urine Color Urine Appearance (Clear) Urine pH (4.5-7.5) Ur Specific [place] (1.000-1.030) Urine Protein (Negative) Urine Glucose (UA) (Negative) Urine Ketones (Negative) Urine Blood (Negative) Urine Nitrite (Negative) Urine Bilirubin (Negative) Urine Urobilinogen (Negative) Ur Leukocyte Esterase (Negative) Digoxin (0.8-2.0) ng/ml Blood Type Antibody Screen 01/03/19 01/03/19 01/03/19 Range/Units 19:52 19:52 19:52 WBC (4.8-10.8) K/uL RBC (4.7-6.1) M/uL Hgb (14.0-18.0) g/dL Hct (42-52) % MCV (80-100) fL MCH (25-34) pg MCHC (32-36) g/dL RDW Std Deviation (36.4-46.3) fL RDW Coeff of Wilfrid (11.5-14.5) % Plt Count (130-400) K/uL MPV (7.4-10.4) fL Immature Gran % (Auto) % Neut % (Auto) % Lymph % (Auto) % [place] % (Auto) % Eos % (Auto) % Baso % (Auto) % Reticulocyte % (Auto) 2.0 (0.5-2.0) % Immature Gran # (Auto) (0.00-0.02) K/uL Neut # (Auto) (1.4-6.5) K/uL Lymph # (Auto) (1.2-3.4) K/uL [place] # (Auto) (0.11-0.59) K/uL Eos # (Auto) (0-0.5) K/uL Baso # (Auto) (0-0.2) K/uL Reticulocyte # 0.07 (0.02-0.10) 10^6/uL PT INR APTT PTT Ratio Sodium (136-145) mmol/L Potassium (3.5-5.1) mmol/L Chloride (98-107) mmol/L Carbon Dioxide (21-32) mmol/L Anion Gap (3-11) BUN (7-18) mg/dl Creatinine (0.6-1.4) mg/dl Est Cr Clr Drug Dosing ml/min Est GFR ( Amer) Est GFR (Non-Af Amer) BUN/Creatinine Ratio (10-20) Glucose (70-99) mg/dl Lactate (0.4-2.0) mmol/L Calcium (8.5-10.1) mg/dl Phosphorus (2.5-4.9) mg/dl Magnesium (1.8-2.4) mg/dl Iron (35-175) mcg/dl TIBC (250-450) mcg/dl Transferrin (200-360) mg/dl Ferritin (8-388) ng/ml Total Bilirubin (0.2-1) mg/dl AST (15-37) U/L ALT (12-78) U/L Alkaline Phosphatase (45-117) U/L Ammonia 19.0 (11-32) umol/L Total Creatine Kinase (39-308) U/L Troponin I (0-0.045) ng/ml NT-Pro-B Natriuret Pep (0-900) pg/ml Total Protein (6.4-8.2) gm/dl Albumin (3.4-5.0) gm/dl Globulin (2.5-4.0) gm/dl Albumin/Globulin Ratio (0.9-2) Vitamin B12 (211-911) pg/ml Folate (>5.38) ng/ml Procalcitonin 0.12 (0-0.5) ng/ml TSH (0.300-4.500) uIu/ml Free T4 (0.8-1.6) ng/dl Total T3 (0.60-1.81) ng/ml Urine Color Urine Appearance (Clear) Urine pH (4.5-7.5) Ur Specific [place] (1.000-1.030) Urine Protein (Negative) Urine Glucose (UA) (Negative) Urine Ketones (Negative) Urine Blood (Negative) Urine Nitrite (Negative) Urine Bilirubin (Negative) Urine Urobilinogen (Negative) Ur Leukocyte Esterase (Negative) Digoxin (0.8-2.0) ng/ml Blood Type Antibody Screen 01/03/19 01/03/19 01/03/19 Range/Units 19:52 19:52 19:52 WBC (4.8-10.8) K/uL RBC (4.7-6.1) M/uL Hgb (14.0-18.0) g/dL Hct (42-52) % MCV (80-100) fL MCH (25-34) pg MCHC (32-36) g/dL RDW Std Deviation (36.4-46.3) fL RDW Coeff of Wilfrid (11.5-14.5) % Plt Count (130-400) K/uL MPV (7.4-10.4) fL Immature Gran % (Auto) % Neut % (Auto) % Lymph % (Auto) % [place] % (Auto) % Eos % (Auto) % Baso % (Auto) % Reticulocyte % (Auto) (0.5-2.0) % Immature Gran # (Auto) (0.00-0.02) K/uL Neut # (Auto) (1.4-6.5) K/uL Lymph # (Auto) (1.2-3.4) K/uL [place] # (Auto) (0.11-0.59) K/uL Eos # (Auto) (0-0.5) K/uL Baso # (Auto) (0-0.2) K/uL Reticulocyte # (0.02-0.10) 10^6/uL PT INR APTT PTT Ratio Sodium (136-145) mmol/L Potassium (3.5-5.1) mmol/L Chloride (98-107) mmol/L Carbon Dioxide (21-32) mmol/L Anion Gap (3-11) BUN (7-18) mg/dl Creatinine (0.6-1.4) mg/dl Est Cr Clr Drug Dosing ml/min Est GFR ( Amer) Est GFR (Non-Af Amer) BUN/Creatinine Ratio (10-20) Glucose (70-99) mg/dl Lactate (0.4-2.0) mmol/L Calcium (8.5-10.1) mg/dl Phosphorus (2.5-4.9) mg/dl Magnesium (1.8-2.4) mg/dl Iron 21 L (35-175) mcg/dl TIBC 112 L (250-450) mcg/dl Transferrin 90 L (200-360) mg/dl Ferritin 389.6 H (8-388) ng/ml Total Bilirubin (0.2-1) mg/dl AST (15-37) U/L ALT (12-78) U/L Alkaline Phosphatase (45-117) U/L Ammonia (11-32) umol/L Total Creatine Kinase (39-308) U/L Troponin I (0-0.045) ng/ml NT-Pro-B Natriuret Pep (0-900) pg/ml Total Protein (6.4-8.2) gm/dl Albumin (3.4-5.0) gm/dl Globulin (2.5-4.0) gm/dl Albumin/Globulin Ratio (0.9-2) Vitamin B12 274 (211-911) pg/ml Folate 9.86 (>5.38) ng/ml Procalcitonin (0-0.5) ng/ml TSH (0.300-4.500) uIu/ml Free T4 (0.8-1.6) ng/dl Total T3 (0.60-1.81) ng/ml Urine Color Urine Appearance (Clear) Urine pH (4.5-7.5) Ur Specific [place] (1.000-1.030) Urine Protein (Negative) Urine Glucose (UA) (Negative) Urine Ketones (Negative) Urine Blood (Negative) Urine Nitrite (Negative) Urine Bilirubin (Negative) Urine Urobilinogen (Negative) Ur Leukocyte Esterase (Negative) Digoxin (0.8-2.0) ng/ml Blood Type A Positive Antibody Screen NEGATIVE Imaging Data Radiologist's Impression: Radiology results as stated below per my review and the radiologist's interpretation: XR chest 1V portable CLINICAL HISTORY: Sepsis COMPARISON STUDY: Chest radiograph May 12, 2013. FINDINGS: A left subclavian biventricular pacer/AICD is in place. Cardiomediastinal silhouette is unremarkable. There is no evidence for pulmonary edema. There is a trace right pleural effusion. There is no pneumothorax. No consolidation is identified to suggest pneumonia. IMPRESSION: Trace right pleural effusion. Electronically signed by: Ho Viveros M.D. 01/03/2019 4:[address] head/brain wo con CLINICAL HISTORY: 73 years-old Male presenting with ams. TECHNIQUE: Multidetector CT imaging of the head was performed without the use of intravenous contrast. IV contrast: None. One or more dose lowering techniques were used consistent with the principles of ALARA (as low as reasonably achievable), including automatic exposure control, mA or kV adjustment to individual patient size, and/or use of iterative reconstruction. COMPARISON: 06/16/2012. CT DOSE (mGy.cm): The estimated cumulative dose is 1649.40 mGy.cm. FINDINGS: [employer] topogram: Left subclavian implanted cardiac defibrillator. Proportional ventricular and sulcal prominence, likely age-related parenchymal volume loss. No hemorrhage. Encephalomalacia in the lateral aspect of the right cerebellar hemisphere. Periventricular and subcortical white matter hypoattenuation nonspecific though likely chronic small vessel ischemic change. No acute territorial infarct. No mass effect or midline shift. No extra-axial fluid collection. Paranasal sinuses and mastoid air cells clear. Right occipital craniectomy. IMPRESSION: 1. Chronic small vessel ischemic change and right cerebellar hemisphere and septal malacia unchanged from prior exam. No acute intracranial abnormality. Electronically signed by: Fabian Tuttle M.D. 01/03/2019 5:[address] abd pelvis IV con only CLINICAL HISTORY: 73 years-old Male presenting with AMS, fever, sob, h/o spinal abscess. TECHNIQUE: Multidetector CT of the abdomen and pelvis was performed after the administration of intravenous contrast. IV contrast: 119 mL of Optiray 320. One or more dose lowering techniques were used consistent with the principles of ALARA (as low as reasonably achievable), including automatic exposure control, mA or kV adjustment to individual patient size, and/or use of iterative reconstruction. COMPARISON: 06/08/2012. CT DOSE (mGy.cm): The estimated cumulative dose is 1649.40. FINDINGS: [employer] topogram: Left subclavian implanted cardiac defibrillator. Lung bases: Defibrillator leads to the residual pin image, right ventricular apex, and coronary sinus. Aortic valve and coronary artery calcification. Small right pleural effusion. Dependent change in the right lower lobe likely passive atelectasis. Liver: Normal morphology. Density suggestive of hepatic steatosis. No focal lesion. Patent hepatic vasculature. Biliary: No intrahepatic or extrahepatic biliary ductal dilatation. Gallbladder wall thickening suggested though there is significant motion artifact in the upper abdomen. The gallbladder is nondistended. Pancreas: Normal. Spleen: Normal. Adrenal glands: Normal. Kidneys and ureters: Few cysts suggested in the left kidney. Renal parenchyma otherwise normal. No nephrolithiasis or hydronephrosis. Ureters nondistended. Bladder: Circumferential bladder wall thickening. Bai catheter decompresses the urinary bladder. Pelvic organs: Prostate and seminal vesicles normal. Bowel: Large stool burden in the rectum with a mild stool burden in the remainder of the colon. No rectal wall thickening or perirectal fat infiltration. Few scattered colonic diverticula noted. The appendix is normal. No bowel obstruction. Peritoneal cavity: No free fluid or intraperitoneal gas. Lymph nodes: No enlarged lymph nodes in the abdomen or pelvis. Vasculature: Atherosclerosis of the tortuous and mildly ectatic abdominal aorta, which measures up to 3.2 cm in diameter. Prominent mural thrombus/noncalcified plaque (series 8 image 151). Abdominal wall: Small fat-containing inguinal hernias right greater than left. Mild body wall edema. Musculoskeletal: Extensive postsurgical changes in the spine with laminectomy defects. Few punctate metallic foci may represent catheters or other prior implanted material. Extensive overlying infiltrative changes compatible with scarring. The spinal canal and paraspinal region is suboptimally assessed by CT. No gross evidence of a large rim-enhancing collection is suggest abscess though there is limited sensitivity for this diagnosis. IMPRESSION: 1. Limited sensitivity for the diagnosis of spinal abscess by CT. If there is continuing clinical concern for this, contrast enhanced MRI would be rec ommended. 2. Significant degenerative change and postsurgical change of the spine makes evaluation limited. 3. Metallic foreign bodies within the spinal canal may relate to a current or prior implanted catheter or other device. 4. Abdominal aortic aneurysm measuring up to 3.2 cm with significant tortuosity and mural thrombus/noncalcified plaque. 5. Hepatic steatosis. 6. Stool burden suggests constipation most prominently in the rectum. 7. Circumferential bladder wall thickening may indicate chronic bladder outlet obstruction or cystitis. Correlate with urinalysis. Electronically signed by: Fabian Tuttle M.D. 01/03/2019 5:[address] ANGIOGRAPHY OF THE CHEST, PULMONARY EMBOLUS PROTOCOL CLINICAL HISTORY: Fever. Shortness of breath. History of spinal abscess. COMPARISON STUDY: Chest radiograph 05/12/2013 and January 03, 2019. TECHNIQUE: Following IV administration of 119 mL of Optiray-320, helical axial images of the chest were obtained utilizing the pulmonary embolus protocol. Maximal intensity projections and sagittal and coronal reformats were viewed on an independent 3D workstation. IV contrast was administered without com plication. Automated exposure control was utilized for the study. A dose lowering technique was utilized adhering to the principles of ALARA. FINDINGS: The central pulmonary arteries are mildly dilated. No central pulmonary emboli are identified. This exam is significantly compromised by respiratory motion artifact. The lobar, segmental and subsegmental pulmonary arteries are suboptimally assessed on this exam. A left subclavian biventricular pacer/AICD is in place. The heart is mildly enlarged. There is no pericardial effusion. There is extensive coronary artery calcification and extensive aortic valvular calcification. No enlarged thoracic lymph nodes are present. A small right pleural effusion is noted. There is no pneumothorax. Moderate to severe emphysema is noted. Note is made of an irregular solid and groundglass left lower lobe nodule that measures 2.8 x 1.9 cm. There is suspected associated fissural retraction. Right lower lobe opacity favors atelectasis. The central airways are patent. No suspicious osseous lesions are noted. Right lobe thyroid nodule is noted. Postoperative findings within the thoracolumbar spine are suboptimally assessed by CT. Osseous irregularity of the lower thoracic and lumbar spine is noted. The abdomen and pelvis will be reported separately. IMPRESSION: 1. No central pulmonary emboli. Remainder of pulmonary arteries inadequately assessed due to respiratory motion artifact. 2. 2.8 x 1.9 cm irregular left lower lobe pulmonary nodule highly suggestive of a primary lung malignancy. Pulmonary consultation is recommended. 3. Moderate to severe emphysema. 4. Small right pleural effusion. 5. Postoperative findings within the thoracolumbar spine which are suboptimally assessed by CT. Suboptimal evaluation of the spinal canal given CT. Electronically signed by: Ho Viveros M.D. 01/03/2019 5:14 PM ECG Data Attestation: I personally reviewed and interpreted this ECG as follows: Indication: altered mental status Rate (beats per minute): 73 Rhythm: other (paced rhythm ) Findings: no acute ischemic change and no ectopy Blood Pressure Blood Pressure Findings: Low blood pressure MDM Narrative The patient is a pleasant 73-year-old gentleman with a comp gated past medical history of malignant spine tumor status post resection radiation 40 years ago, status post resection of acoustic neuroma with complication of chronic right fac ial droop and right eyelid ptosis, A. fib, chronic lower extremity edema, TIA, diastolic heart failure, ICD and pacemaker for ischemic cardiomyopathy 5 years ago presents emergency department with worsening generalized weakness and intermittent confusion and drowsiness per hpi. On arrival patient is chronically ill-appearing but no acute distress, afebrile stable vital signs. The patient at this time is alert and follows commands. He exhibits generalized weakness of his upper and lower extremities without any new focal deficits. Specifically, he has chronic right facial droop/ptosis. 4/5 strength BUE. 2-3/5 strength BLE He has 2+ bilateral lower extremity pitting edema as well as chronic pressure wounds. He has a punctate ulcer of his mid back without any purulent drainage. CT of the chest demonstrates right lower lobe opacity with pleural effusion which given the patient's low-grade fever, cough and hypoxia to 88% on room air on arrival it suspicious for pneumonia. Otherwise there is a left lower lobe pulmonary nodule that is highly suggestive of primary lung malignancy however the patient's son reports they are aware of this and have decided to not pursue any diagnostic testing is going forward given the patient's frail clinical status. CTs did not demonstrate any gross evidence of rim-enhancing collection to suggest abscess. Given the patient has a AICD/pacemaker unable to obtain MRI. Considering the family report that the wound does appear improved and to be closing unlikely to be worsening/recurrence of his previous infection. WBC within normal limits. H/H 12/36.2 without prior values for comparison. Platelets within normal limits. Chemistry without acido sis. Although, BUN/creatinine> 20 suggestive of component of dehydration. Lactate within normal limits. AST 44 and otherwise LFTs unremarkable. BNP within normal limits. Given the family's report of a decline over the past several weeks in the setting of the patient's findings of pneumonia reasonable to admit the patient for further management. Blood cultures drawn and patient ordered for Zosyn and Vancomycin. Case was discussed with Gilbert Garay, who will evaluated the patient for admission. Impression & Plan Pneumonia, Weakness, Hypoxia Discharge Plan Visit Data *Final* Discharge Date/Time: 01/03/19 21:50 Chief Complaint: Altered Mental Status Stated Complaint: AMS, ALOC, URINARY SX ED Provider: Aditya Melendez Discharge Problem: Pneumonia, Weakness, Hypoxia Patient Disposition: Admitted As Inpatient Discharge Instructions Interventions: ED Discharge Assessment Last Done: 01/03/19 21:50 Discharge Problem: Pneumonia Qualifiers: Pneumonia type: due to unspecified organism Laterality: right Lung location: lower lobe of lung Qualified Code(s): J18.1 - Lobar pneumonia, unspecified organism The scribe's documentation has been prepared under my direction and personally reviewed by me in its entirety. I confirm that the note above accurately reflects all work, treatment, procedures, and medical decision making performed by me.
[2019-01-03 20:17] LABS: Reticulocytes # 0.07 10^6/uL (0.02-0.10)
[2019-01-03 20:40] LABS: Ferritin 389.6 ng/ml (8-388)
--- NOTE | 2019-01-03 20:52 | History & Physical Report ---
Date of Service January 03, 2019 Assessment & Plan (1) Weakness: ? Viral infection Low-grade fever noted at the ER Patient not septic. No obvious bacterial source for now. chronic systolic heart failure EF 45% sp ICD, TTE 2014, patient euvolemic to dry AF sp PPM currently not on anticoagulation, presumably from fall risk CAD status post stent hx aortic stenosis hx LBBB hx PVD Hypertension, stable hx TIA as per hx spinal cord ependymoma status post surgery/radiation hx acoustic neuroma sp surgery hypothyroidism, euthyroid as of today's TSH chronic anemia, hemoglobin lower than baseline of 13 last year possibly from hemorrhoidal bleed history lung mass, probable malignancy, patient/family not interested in work-up Recent hx spinal abscess status post antibiotic Rx past tobacco abuse. OBS Medical telemetry Follow cultures Hold off on antibiotics for now until definite bacterial source found. Gentle IV hydration anemia work-up, transfuse PRBC if hemoglobin less than 8 and/or for symptomatic anemia PT OT eval DVT prophylaxis. SCDs RE bleeding hemorrhoids Full code Patient's requesting updates from providers. Ms. Oxana Garcia, contact #[phone]. History of Present Illness Chief Complaint: Confusion, weakness as per family Primary Care Provider: Dr. Ramirez Richardson History obtained from patient, family, and records. Patient is a fair historian. Medical history significant for chronic systolic heart failure EF 45% sp ICD, TTE 2014, AF sp PPM currently not on anticoagulation, CAD status post stent, history of aortic stenosis, chronic LBBB, hypertension, PVD, hx TIA as per , spinal cord ependymoma status post surgery, history of acoustic neuroma status post surgery, hypothyroidism, agent orange exposure, chronic anemia (baseline hemoglobin 13), history lung mass, past tobacco abuse. Recent confinement at [facility] last May 2013 for ICD firing. Patient had a mechanical fall about 2 months ago leading to back pain/bruising symptoms. No initial consultations done. Patient later confined at [facility] last month for a spine infection sp antibiotic Rx. No surgery as per family. Patient subsequently discharged to rehab and discharged back home 2 weeks ago. Few days ago patient noted by to transient confusion, slurred speech, poor urine output. Patient subsequently noted to be weaker than usual needing assistance today. Patient denies unusual chest pain, S OB, unusual cough symptoms, abdominal pain, diarrhea, dysuria. No unusual back pain, fever, chills. Hemorrhoids bleeding from time to time as per . Patient received IV Vancomycin and Zosyn at the ER Medical History as above Surgical History : Spinal cord tumor surgery, acoustic neuroma surgery, ICD/PPM Family History : Heart disease Personal/Social history : Past tobacco abuse, occasional EtOH intake, [place] [employer] Allergies Allergy/AdvReac Type Severity Reaction Status Date / Time No Known Allergies Allergy Verified 01/03/19 16:56 Home Medications Home Medications Medication Instructions Recorded Confirmed Type acetaminophen 325 mg capsule 650 mg PO Q4H PRN cap 12/06/18 01/03/19 History bisacodyl 10 mg rectal suppository 10 mg MA DAILY PRN 12/06/18 01/03/19 History carvedilol 12.5 mg tablet 12.5 mg PO BID 12/06/18 01/03/19 History clopidogrel 75 mg tablet 75 mg PO DAILY 12/06/18 01/03/19 History digoxin 250 mcg (0.25 mg) tablet 250 mcg PO DAILY 12/06/18 01/03/19 History enoxaparin 40 mg/0.4 mL 40 mg SQ DAILY 12/06/18 01/03/19 History subcutaneous syringe lisinopril 5 mg tablet 5 mg PO DAILY 12/06/18 01/03/19 History lovastatin 10 mg tablet 10 mg PO DAILY 12/06/18 01/03/19 History mirtazapine 7.5 mg tablet 7.5 mg PO DAILY 12/06/18 01/03/19 History polyethylene glycol 3350 17 8.5 gm PO DAILY PRN 12/06/18 01/03/19 History gram/dose oral powder pravastatin 10 mg tablet 10 mg PO DAILY 12/06/18 01/03/19 History sennosides 8.6 mg-docusate sodium 1 tab PO BID PRN 12/06/18 01/03/19 History 50 mg tablet hydrocodone-acetaminophen 1 tab PO Q6H PRN 01/03/19 01/03/19 History levothyroxine 50 mcg PO DAILY 01/03/19 01/03/19 History rosuvastatin 20 mg PO DAILY 01/03/19 01/03/19 History Past Med/Surg History Medical History A-fib (Chronic) CHF (congestive heart failure) (Chronic) Facial droop (Chronic) Ischemic cardiomyopathy (Chronic) Pacemaker (Chronic) TIA (transient ischemic attack) (Chronic) History of acoustic neuroma (Resolved) Malignant tumor spinal cord (Resolved) Surgical History S/P excision of acoustic neuroma (Resolved) Social History Preferred Language: [place] Communication Ability: Effective Visual Impairment: Limited Hearing Ability: Use of Hearing Aid Practice Support Specialist Required: No Beliefs That Will Affect Care: None marital status: Current Living Situation: Spouse Current Living Situation Comment: uncertain. pt confused. current occupational status: disabled Feels Safe at Home: Yes Smoking Status: Unknown if ever smoked Review of Systems Review of Systems: Could not be reliably obtained Physical Exam Physical Exam: GENERAL: Comfortable, hard of hearing, no respiratory distress SKIN: Pallor , warm HEENT: Partial alopecia, pale palpebral conjunctivae, no ptosis, chronic facial asymmetry, dry buccal mucosa NECK : Supple, no tenderness CHEST : Decreased effort , no tenderness HEART : RRR, systolic murmur ABDOMEN: Soft, nontender BACK : Not examined EXTREMITIES : Bilateral LE swelling right greater than the left, no LE tenderness NEUROLOGIC : Coherent, chronic facial asymmetry, slightly hard of hearing, gait and stance not assessed Results & Data Vital Signs (Past 12 Hours) Vital Signs Temp Pulse Pulse Resp BP BP Pulse Ox 01/03/19 20:02 96 01/03/19 20:00 110/57 L 98 01/03/19 19:45 118/59 L 94 01/03/19 19:30 96 01/03/19 19:15 121/63 98 01/03/19 19:00 113/52 L 96 01/03/19 18:45 116/53 L 98 01/03/19 18:38 123/58 L 97 01/03/19 18:31 64 22 125/49 L 96 01/03/19 18:30 67 23 96 01/03/19 18:15 70 19 103/44 L 97 01/03/19 18:14 65 23 98 01/03/19 18:00 79 22 92 01/03/19 17:45 60 19 120/43 L 97 01/03/19 17:32 20 96 01/03/19 17:31 64 24 121/42 L 97 01/03/19 17:30 66 24 100 01/03/19 17:15 18 97 01/03/19 17:08 70 20 98 01/03/19 17:07 77 23 134/55 L 97 01/03/19 17:03 78 01/03/19 16:31 64 14 100/69 98 01/03/19 16:30 78 19 97 01/03/19 16:29 69 18 109/50 L 97 01/03/19 16:17 66 97 01/03/19 16:15 79 94 01/03/19 16:11 96 01/03/19 16:07 97/43 L 95 01/03/19 16:01 115/38 L 96 01/03/19 16:00 93 01/03/19 15:52 67 18 91/47 L 96 01/03/19 15:46 68 13 91/47 L 94 01/03/19 15:45 67 17 93 01/03/19 15:40 37.7 C H 74 18 100/49 L 88 L 01/03/19 15:34 71 17 90 01/03/19 15:33 72 15 100/47 L 88 L Laboratory Results Laboratory Results WBC 9.90 K/uL (4.8-10.8) 01/03/19 14:40 RBC 3.91 M/uL (4.7-6.1) L 01/03/19 14:40 Hgb 12.0 g/dL (14.0-18.0) L 01/03/19 14:40 Hct 36.2 % (42-52) L 01/03/19 14:40 MCV 92.6 fL (80-100) 01/03/19 14:40 MCH 30.7 pg (25-34) 01/03/19 14:40 MCHC 33.1 g/dL (32-36) 01/03/19 14:40 RDW Std Deviation 47.1 fL (36.4-46.3) H 01/03/19 14:40 RDW Coeff of Wilfrid 14.0 % (11.5-14.5) 01/03/19 14:40 Plt Count 194 K/uL (130-400) 01/03/19 14:40 MPV 9.3 fL (7.4-10.4) 01/03/19 14:40 Immature Gran % (Auto) 0.4 % 01/03/19 14:40 Neut % (Auto) 71.7 % 01/03/19 14:40 Lymph % (Auto) 15.4 % 01/03/19 14:40 [place] % (Auto) 11.7 % 01/03/19 14:40 Eos % (Auto) 0.6 % 01/03/19 14:40 Baso % (Auto) 0.2 % 01/03/19 14:40 Reticulocyte % (Auto) 2.0 % (0.5-2.0) 01/03/19 19:52 Immature Gran # (Auto) 0.04 K/uL (0.00-0.02) H 01/03/19 14:40 Neut # (Auto) 7.10 K/uL (1.4-6.5) H 01/03/19 14:40 Lymph # (Auto) 1.52 K/uL (1.2-3.4) 01/03/19 14:40 [place] # (Auto) 1.16 K/uL (0.11-0.59) H 01/03/19 14:40 Eos # (Auto) 0.06 K/uL (0-0.5) 01/03/19 14:40 Baso # (Auto) 0.02 K/uL (0-0.2) 01/03/19 14:40 Reticulocyte # 0.07 10^6/uL (0.02-0.10) 01/03/19 19:52 PT 12.3 Seconds (9.0-12.0) H 01/03/19 17:14 INR 1.2 (0.9-1.1) H 01/03/19 17:14 APTT 27.6 Seconds (21.0-31.0) 01/03/19 17:14 PTT Ratio 1.0 01/03/19 17:14 Sodium 140 mmol/L (136-145) 01/03/19 14:40 Potassium 4.3 mmol/L (3.5-5.1) 01/03/19 14:40 Chloride 103 mmol/L (98-107) 01/03/19 14:40 Carbon Dioxide 29 mmol/L (21-32) 01/03/19 14:40 Anion Gap 8.0 (3-11) 01/03/19 14:40 BUN 14 mg/dl (7-18) 01/03/19 14:40 Creatinine 0.57 mg/dl (0.6-1.4) L 01/03/19 14:40 Est Cr Clr Drug Dosing 117.5 ml/min 01/03/19 14:40 Est GFR ( Amer) 119.7 01/03/19 14:40 Est GFR (Non-Af Amer) 103.3 01/03/19 14:40 BUN/Creatinine Ratio 24.8 (10-20) H 01/03/19 14:40 Glucose 95 mg/dl (70-99) 01/03/19 14:40 Lactate 1.0 mmol/L (0.4-2.0) 01/03/19 17:14 Calcium 8.0 mg/dl (8.5-10.1) L 01/03/19 14:40 Phosphorus 2.9 mg/dl (2.5-4.9) 01/03/19 14:40 Magnesium 1.9 mg/dl (1.8-2.4) 01/03/19 14:40 Iron 21 mcg/dl (35-175) L 01/03/19 19:52 TIBC 112 mcg/dl (250-450) L 01/03/19 19:52 Transferrin 90 mg/dl (200-360) L 01/03/19 19:52 Ferritin 389.6 ng/ml (8-388) H 01/03/19 19:52 Total Bilirubin 0.8 mg/dl (0.2-1) 01/03/19 14:40 AST 44 U/L (15-37) H 01/03/19 14:40 ALT 42 U/L (12-78) 01/03/19 14:40 Alkaline Phosphatase 161 U/L (45-117) H 01/03/19 14:40 Ammonia 19.0 umol/L (11-32) 01/03/19 19:52 Total Creatine Kinase 340 U/L (39-308) H 01/03/19 14:40 Troponin I < 0.015 ng/ml (0-0.045) 01/03/19 19:52 NT-Pro-B Natriuret Pep 720 pg/ml (0-900) 01/03/19 14:40 Total Protein 6.5 gm/dl (6.4-8.2) 01/03/19 14:40 Albumin 2.2 gm/dl (3.4-5.0) L 01/03/19 14:40 Globulin 4.3 gm/dl (2.5-4.0) H 01/03/19 14:40 Albumin/Globulin Ratio 0.5 (0.9-2) L 01/03/19 14:40 Procalcitonin 0.12 ng/ml (0-0.5) 01/03/19 19:52 TSH 0.207 uIu/ml (0.300-4.500) L 01/03/19 14:40 Free T4 1.27 ng/dl (0.8-1.6) 01/03/19 14:40 Urine Color Yellow 01/03/19 15:30 Urine Appearance Clear (Clear) 01/03/19 15:30 Urine pH 6.5 (4.5-7.5) 01/03/19 15:30 Ur Specific [place] 1.021 (1.000-1.030) 01/03/19 15:30 Urine Protein Negative (Negative) 01/03/19 15:30 Urine Glucose (UA) Negative (Negative) 01/03/19 15:30 Urine Ketones Negative (Negative) 01/03/19 15:30 Urine Blood Negative (Negative) 01/03/19 15:30 Urine Nitrite Negative (Negative) 01/03/19 15:30 Urine Bilirubin Negative (Negative) 01/03/19 15:30 Urine Urobilinogen Negative (Negative) 01/03/19 15:30 Ur Leukocyte Esterase Negative (Negative) 01/03/19 15:30 Digoxin 1.7 ng/ml (0.8-2.0) 01/03/19 14:40 Diagnostic Findings EKG as per my interpretation : Rate 75, paced rhythm CT head: 1. Chronic small vessel ischemic change and right cerebellar hemisphere and septal malacia unchanged from prior exam. No acute intracranial abnormality. CT chest: 1. No central pulmonary emboli. Remainder of pulmonary arteries inadequately assessed due to respiratory motion artifact. 2. 2.8 x 1.9 cm irregular left lower lobe pulmonary nodule highly suggestive of a primary lung malignancy. Pulmonary consultation is recommended. 3. Moderate to severe emphysema. 4. Small right pleural effusion. 5. Postoperative findings within the thoracolumbar spine which are suboptimally assessed by CT. Suboptimal evaluation of the spinal canal given CT. CT abdomen pelvis: 1. Limited sensitivity for the diagnosis of spinal abscess by CT. If there is continuing clinical concern for this, contrast enhanced MRI would be recommended. 2. Significant degenerative change and postsurgical change of the spine makes evaluation limited. 3. Metallic foreign bodies within the spinal canal may relate to a current or prior implanted catheter or other device. 4. Abdominal aortic aneurysm measuring up to 3.2 cm with significant tortuosity and mural thrombus/noncalcified plaque. 5. Hepatic steatosis. 6. Stool burden suggests constipation most prominently in the rectum. 7. Circumferential bladder wall thickening may indicate chronic bladder outlet obstruction or cystitis. Correlate with urinalysis.
[2019-01-03 21:00] LABS: Folate (Folic Acid) 9.86 ng/ml (>5.38)
[2019-01-03] MEDS ORDERED: ACETAMINOPHEN 325 MG TAB PO PRN (22:35)
[2019-01-03] MEDS ORDERED: NITROGLYCERIN SL 0.4 MG/TAB TAB SL PRN (22:35)
[2019-01-03] MEDS ORDERED: DOCUSATE SODIUM/SENNA 50/8.6MG TAB PO PRN (22:35)
[2019-01-03] MEDS ORDERED: POLYETHYLENE (MIRALAX) 17 GM PACK PO PRN (22:35)
[2019-01-03] MEDS ORDERED: LACTATED RINGER'S 1,000 ML IV ONE (22:35)
[2019-01-03] MEDS ORDERED: NON-FORMULARY MEDICATION (Acetaminophen 650 MG) PO PRN (22:35)
[2019-01-03] MEDS ORDERED: HYDROCODONE/ACETAMOPHEN 5/325MG TAB PO PRN (22:35)
[2019-01-03] MEDS ORDERED: PROMETHAZINE HCL 12.5 MG in SODIUM CHLORIDE 0.9% 50 ML IV PRN (22:35)
[2019-01-03] MEDS: carvediloL 12.5 MG TAB PO SCH (23:09)
[2019-01-04] MEDS: LEVOTHYROXINE SODIUM 50 MCG TABLET PO SCH (05:38)
[2019-01-04 06:26] LABS: Basophils # (auto) 0.02 K/uL (0-0.2); Basophils % (auto) 0.2 %; Eosinophils # (auto) 0.14 K/uL (0-0.5); Eosinophils % (auto) 1.6 %; Hematocrit (blood only) 33.3 % (42-52); Hemoglobin 10.8 g/dL (14.0-18.0); Immature Granulocytes # (auto) 0.03 K/uL (0.00-0.02); Immature Granulocytes % (auto) 0.3 %; Lymphocytes # (auto) 1.19 K/uL (1.2-3.4); Lymphocytes % (auto) 13.3 %; Mean Corpuscular Hemoglobin 29.9 pg (25-34); Mean Corpuscular Hgb Conc 32.4 g/dL (32-36); Mean Corpuscular Volume 92.2 fL (80-100); Monocytes # (auto) 0.88 K/uL (0.11-0.59); Monocytes % (auto) 9.8 %; Neutrophils # (auto) 6.68 K/uL (1.4-6.5); Neutrophils % (auto) 74.8 %; Platelet Count 155 K/uL (130-400); RDW Standard Deviation 47.2 fL (36.4-46.3); Red Blood Count 3.61 M/uL (4.7-6.1); White Blood Count 8.94 K/uL (4.8-10.8)
[2019-01-04 07:02] LABS: BUN Creatinine Ratio 23.3 (10-20); Calcium 7.6 mg/dl (8.5-10.1); Creatinine Clr Calc Pharmacy 134.1 ml/min; Est GFR (African American) 125.3; Est GFR (Non-African American) 108.1; Potassium 3.9 mmol/L (3.5-5.1)
--- NOTE | 2019-01-04 07:06 | Ultrasound Report ---
BILATERAL LOWER EXTREMITY VENOUS DOPPLER HISTORY: Bilateral leg swelling COMPARISON STUDY: None. FINDINGS: Limited visualization of the left calf vessels. The pill machine operator was unable to compress the left common femoral vein, greater saphenous vein, and proximal femoral vein. Otherwise, there is norm al compressibility, flow, and augmentation within the bilateral lower extremity deep venous systems. IMPRESSION: No DVT within the right or left lower extremity. Electronically signed by: Luther Rubio M.D. 01/04/2019 7:04 AM
[2019-01-04] MEDS: MIRTAZAPINE TAB 15 MG TAB PO SCH (08:16)
[2019-01-04] MEDS: LOVASTATIN 20 MG TAB PO SCH (08:17)
[2019-01-04] MEDS: carvediloL 12.5 MG TAB PO SCH ×2 (08:18→21:33)
[2019-01-04] MEDS: lisinopriL 5 MG TAB PO SCH (08:18)
[2019-01-04] MEDS: CLOPIDOGREL BISULFATE 75 MG TAB PO SCH (08:19)
[2019-01-04] MEDS ORDERED: PNEUMOCOCCAL POLYSACCHARIDES 25 MCG/0.5 ML VIAL/SYR IM ONE (09:00)
[2019-01-04] MEDS ORDERED: INFLUENZA ADMINISTRATION CHARGE ONE (09:00)
[2019-01-04] MEDS ORDERED: INFLUENZA VIRUS QUAD VACCINE 0.5 ML SYR IM ONE (09:00)
[2019-01-04] MEDS ORDERED: PNEUMOCOCCAL ADMINISTRATION CHARGE ONE (09:00)
[2019-01-04] MEDS ORDERED: DIGOXIN 0.25 MG TAB PO SCH (16:00)
--- NOTE | 2019-01-04 17:09 | Hospitalist Progress Note ---
Date of Service January 04, 2019 Assessment & Plan (1) Weakness: Presented with generalized weakness and questionable TIA-like symptoms involving speech No more episode noted while in the hospital Noted to have low-grade fever noted at the ER Could be secondary to viral illness Patient not septic. No obvious signs or symptoms of infection We will get PT and OT evaluation before discharging the patient Chronic systolic heart failure EF 45% sp ICD, TTE 2014, patient euvolemic to dry AF sp PPM currently not on anticoagulation, presumably from fall risk CAD status post stent hx aortic stenosis Denies any cardiac symptoms Clinically remains stable Hypertension, stable hx TIA as per Recent history of spinal cord ependymoma status post surgery/radiation Recent hx spinal abscess status post antibiotic Rx and finished the course Has spinal wound Wound care provider will be consulted Patient the son did not want any more surgery Hypothyroidism, Euthyroid as of today's TSH Chronic anemia, hemoglobin lower than baseline of 13 last year possibly from hemorrhoidal bleed History of acoustic neuroma sp surgery History lung mass, probable malignancy, patient/family not interested in work-up Recent CT of the chest documented the lung mass Discussed with the patient and the son No further work-up on that Past tobacco abuse. DVT prophylaxis. SCDs RE bleeding hemorrhoids Full code Patient's requesting updates from providers. Ms. Oxana Garcia, contact #[phone]. Subjective 01/04 The patient was seen and examined in medical telemetry unit He was admitted with TIA-like symptoms which have resolved completely Complaints to have some back pain without any radiation of pain but without any fever and/or chills Denies any chest pain, palpitation or shortness of breath Review of Systems Review of Systems: All systems reviewed and are unremarkable except as noted below Constitutional: + weakness Musculoskeletal: + back pain (Without any radiation) Status post incision and drainage at the lower back with back wound Neurologic: Right facial palsy with history of removal of right acoustic neuroma Physical Exam Physical Exam: Lying in bed without significant symptoms Constitutional: well developed, well nourished and + ill appearing; no acute distress Eyes: + conjunctival abnormality (Right sided ectropion of the lower lid) ENMT: external ear and nose normal, oropharynx normal Neck: trachea midline, no thyromegaly Respiratory: normal respiratory effort; no respiratory distress Auscultation: lungs clear to auscultation bilaterally Cardiovascular: Rate/Rhythm: regular rate and regular rhythm Heart Sounds: no murmur Extremities: + edema (2-3+ edema bilaterally lower legs) Gastrointestinal (Abdomen): Inspection/Auscultation: abdomen normal to inspection and normal bowel sounds Percussion/Palpation: abdomen soft Musculoskeletal: Has back pain, status post minor back surgery with I&D. 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 Results & Data Vital Signs (Past 12 Hours) Vital Signs Temp Pulse Pulse Resp BP Pulse Ox 01/04/19 16:23 70 01/04/19 16:19 65 01/04/19 15:28 36.6 C 66 18 101/57 L 91 01/04/19 14:14 91 01/04/19 11:21 36.7 C 70 17 104/47 L 94 01/04/19 07:43 36.2 C L 67 18 106/57 L 90 Laboratory Results Short CBC 01/04/19 Range/Units 06:12 WBC 8.94 (4.8-10.8) K/uL Hgb 10.8 L (14.0-18.0) g/dL Hct 33.3 L (42-52) % Plt Count 155 (130-400) K/uL BMP 01/04/19 06:12 Sodium 139 Potassium 3.9 Chloride 105 Carbon Dioxide 29 BUN 12 Creatinine 0.51 L Glucose 89 Calcium 7.6 L Cardiac Enzymes 01/03/19 01/04/19 Range/Units 19:52 06:12 Total Creatine Kinase 628 H (39-308) U/L Troponin I < 0.015 (0-0.045) ng/ml Urine 01/03/19 Range/Units 15:30 Urine Color Yellow Urine Appearance Clear (Clear) Urine pH 6.5 (4.5-7.5) Ur Specific [place] 1.021 (1.000-1.030) Urine Protein Negative (Negative) Urine Glucose (UA) Negative (Negative) Medications Administered Current Inpatient Medications Acetaminophen (Tylenol) 650 mg PO Q4H PRN PRN Reason: Pain or Fever Stop: 02/02/19 22:34 Hydrocodone Bitart/Acetaminophen ([place] 5/325) 1 tab PO Q6H PRN PRN Reason: Pain Stop: 01/17/19 22:34 Carvedilol (Coreg) 12.5 mg PO BID LADAN Stop: 02/02/19 22:34 Last Admin: 01/04/19 08:18 Dose: 12.5 mg Documented by: Clopidogrel Bisulfate (Plavix) 75 mg PO DAILY LADAN Stop: 02/03/19 08:59 Last Admin: 01/04/19 08:19 Dose: 75 mg Documented by: Digoxin (Lanoxin) 0.25 mg PO DAILY@1600 LADAN Stop: 02/03/19 15:59 Last Admin: 01/04/19 16:19 Dose: 0.25 mg Documented by: Promethazine HCl 12.5 mg/ (Sodium Chloride) 50.5 mls @ 202 mls/hr IV Q6H PRN PRN Reason: Nausea And Vomiting Stop: 02/02/19 22:34 Lactated Ringer's (Lr) 1,000 mls @ 50 mls/hr IV .Q20H ONE Stop: 01/04/19 18:34 Last Admin: 01/03/19 23:01 Dose: 50 mls/hr Documented by: Levothyroxine Sodium (Synthroid) 50 mcg PO DAILYBB [facility] Stop: 02/03/19 06:29 Last Admin: 01/04/19 05:38 Dose: 50 mcg Documented by: Lisinopril (Zestril) 5 mg PO DAILY LADAN Stop: 02/03/19 08:59 Last Admin: 01/04/19 08:18 Dose: 5 mg Documented by: Lovastatin (Mevacor) 10 mg PO DAILY [facility] Stop: 02/03/19 08:59 Last Admin: 01/04/19 08:17 Dose: 10 mg Documented by: Mirtazapine (Remeron) 7.5 mg PO DAILY [facility] Stop: 02/03/19 08:59 Last Admin: 01/04/19 08:16 Dose: 7.5 mg Documented by: Nitroglycerin (Nitrostat) 0.4 mg SL UD PRN PRN Reason: Chest Pain Stop: 02/02/19 22:34 Polyethylene Glycol (Miralax Powder Packet) 8.5 gm PO DAILY PRN PRN Reason: Constipation Stop: 02/02/19 22:34 Senna/Docusate Sodium (Senokot S) 1 tab PO BID PRN PRN Reason: Constipation Stop: 02/02/19 22:34
[2019-01-05] MEDS: LEVOTHYROXINE SODIUM 50 MCG TABLET PO SCH (06:02)
[2019-01-05 07:15] LABS: Basophils # (auto) 0.02 K/uL (0-0.2); Basophils % (auto) 0.2 %; Eosinophils # (auto) 0.15 K/uL (0-0.5); Eosinophils % (auto) 1.7 %; Hematocrit (blood only) 33.2 % (42-52); Immature Granulocytes # (auto) 0.04 K/uL (0.00-0.02); Immature Granulocytes % (auto) 0.5 %; Lymphocytes # (auto) 1.48 K/uL (1.2-3.4); Lymphocytes % (auto) 16.8 %; Mean Corpuscular Hemoglobin 30.6 pg (25-34); Mean Corpuscular Hgb Conc 33.1 g/dL (32-36); Mean Corpuscular Volume 92.2 fL (80-100); Mean Platelet Volume 9.3 fL (7.4-10.4); Monocytes # (auto) 0.87 K/uL (0.11-0.59); Monocytes % (auto) 9.9 %; Neutrophils # (auto) 6.27 K/uL (1.4-6.5); Neutrophils % (auto) 70.9 %; Platelet Count 175 K/uL (130-400); RDW Coefficient of Variation 14.1 % (11.5-14.5); RDW Standard Deviation 47.9 fL (36.4-46.3); White Blood Count 8.83 K/uL (4.8-10.8)
[2019-01-05] MEDS: carvediloL 12.5 MG TAB PO SCH (07:28)
[2019-01-05] MEDS: LOVASTATIN 20 MG TAB PO SCH (07:29)
[2019-01-05] MEDS: MIRTAZAPINE TAB 15 MG TAB PO SCH (07:30)
[2019-01-05] MEDS: lisinopriL 5 MG TAB PO SCH (07:31)
[2019-01-05] MEDS: CLOPIDOGREL BISULFATE 75 MG TAB PO SCH (07:31)
[2019-01-05 07:36] LABS: BUN Creatinine Ratio 25.7 (10-20); Calcium 7.9 mg/dl (8.5-10.1); Creatinine Clr Calc Pharmacy 132.4 ml/min; Est GFR (African American) 124.3; Est GFR (Non-African American) 107.3; Potassium 3.7 mmol/L (3.5-5.1)
[2019-01-05 07:37] LABS: Phosphorus 2.5 mg/dl (2.5-4.9)
[2019-01-05] MEDS ORDERED: COLLAGENASE OINT 30 GM TUBE EXT SCH (12:15)
--- NOTE | 2019-01-05 12:35 | Hospitalist Progress Note ---
Date of Service January 05, 2019 Assessment & Plan (1) Weakness: Presented with generalized weakness and questionable TIA-like symptoms involving speech No more episode noted while in the hospital Noted to have low-grade fever noted at the ER Could be secondary to viral illness Patient not septic. 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 hx spinal abscess status post antibiotic Rx and finished the course Has spinal wound Wound care provider will be consulted Patient and the son did not want any more surgery Appreciate wound care provider input and recommendation Has stage II-III sacral decubitus Management will be as per wound care Doubt any need for antibiotics Hypothyroidism, Euthyroid as of today's TSH Chronic anemia, hemoglobin lower than baseline of 13 last year possibly from hemorrhoidal bleed History of acoustic neuroma sp surgery History lung mass, probable malignancy, patient/family not interested in work-up Recent CT of the chest documented the lung mass Discussed with the patient and the son No further work-up on that Past tobacco abuse. DVT prophylaxis. SCDs RE bleeding hemorrhoids Full code Patient's requesting updates from providers. Ms. Oxana Garcia, contact #[phone]. Physical therapist recommended rehab Discussed with the son and the social service Patient will discharge this afternoon at home with home physical therapy Subjective 01/04 The patient was seen and examined in medical telemetry unit He was admitted with TIA-like symptoms which have resolved completely Complaints to have some back pain without any radiation of pain but without any fever and/or chills Denies any chest pain, palpitation or shortness of breath 01/05 The patient was seen and examined the medical telemetry unit Review of Systems Review of Systems: All systems reviewed and are unremarkable except as noted below Constitutional: + weakness Musculoskeletal: + back pain (Without any radiation) Status post incision and drainage at the lower back with back wound Neurologic: Right facial palsy with history of removal of right acoustic neuroma Physical Exam Constitutional: well developed, well nourished and + ill appearing; no acute distress Eyes: + conjunctival abnormality (Right sided ectropion of the lower lid) ENMT: external ear and nose normal, oropharynx normal Neck: trachea midline, no thyromegaly Respiratory: normal respiratory effort; no respiratory distress Auscultation: lungs clear to auscultation bilaterally Cardiovascular: Rate/Rhythm: regular rate and regular rhythm Heart Sounds: no murmur Extremities: + edema (2-3+ edema bilaterally lower legs) Gastrointestinal (Abdomen): Inspection/Auscultation: abdomen normal to inspection and normal bowel sounds Percussion/Palpation: abdomen soft Neurologic: moves all extremities; no focal motor deficits Results & Data Vital Signs (Past 12 Hours) Vital Signs Temp Pulse Pulse Resp BP Pulse Ox 01/05/19 06:59 36.6 C 69 19 96/54 L 92 01/05/19 04:00 36.5 C 73 16 108/51 L 95 01/05/19 00:39 103 H
[2019-01-05 15:20] VITALS: BP 99/44; TEMP 98.2; O2SAT 95
[2019-01-05 15:35] VITALS: PULSE 78
--- NOTE | 2019-01-05 15:50 | Wound Consultation ---
Date of Consultation January 05, 2019 Assessment & Plan (1) Traumatic wound: No debridement was required. Wound will be dressed with Santyl. Continue to follow as needed. Thank you for allowing to participate in this care of this patient. Please not hesitate to call with any questions. We will see patient in the office after discharge. (2) Abscess of back: History of Present Illness Reason for Consultation: Spinal wound Attending Physician: Helene Matt MD This is a 73-year-old male known to the wound clinic with known traumatic wound of his thoracic spine. He has been dressing the wound with Adaptic, Nimisha and OPTi foam. Patient is admitted with altered mental status. Allergies Allergy/AdvReac Type Severity Reaction Status Date / Time No Known Allergies Allergy Verified 01/03/19 16:56 Home Medications Home Medications Medication Instructions Recorded Confirmed Type acetaminophen 325 mg capsule 650 mg PO Q4H PRN cap 12/06/18 01/03/19 History bisacodyl 10 mg rectal suppository 10 mg MN DAILY PRN 12/06/18 01/03/19 History carvedilol 12.5 mg tablet 12.5 mg PO BID 12/06/18 01/03/19 History clopidogrel 75 mg tablet 75 mg PO DAILY 12/06/18 01/03/19 History digoxin 250 mcg (0.25 mg) tablet 250 mcg PO DAILY 12/06/18 01/03/19 History enoxaparin 40 mg/0.4 mL 40 mg SQ DAILY 12/06/18 01/03/19 History subcutaneous syringe lisinopril 5 mg tablet 5 mg PO DAILY 12/06/18 01/03/19 History lovastatin 10 mg tablet 10 mg PO DAILY 12/06/18 01/03/19 History mirtazapine 7.5 mg tablet 7.5 mg PO DAILY 12/06/18 01/03/19 History polyethylene glycol 3350 17 8.5 gm PO DAILY PRN 12/06/18 01/03/19 History gram/dose oral powder pravastatin 10 mg tablet 10 mg PO DAILY 12/06/18 01/03/19 History sennosides 8.6 mg-docusate sodium 1 tab PO BID PRN 12/06/18 01/03/19 History 50 mg tablet hydrocodone-acetaminophen 1 tab PO Q6H PRN 01/03/19 01/03/19 History levothyroxine 50 mcg PO DAILY 01/03/19 01/03/19 History rosuvastatin 20 mg PO DAILY 01/03/19 01/03/19 History collagenase clostridium histo. 1 applic EXT DAILY 30 Days #30 gm 01/05/19 Rx [Santyl] Patient History Medical History A-fib (Chronic) CHF (congestive heart failure) (Chronic) Facial droop (Chronic) Ischemic cardiomyopathy (Chronic) Pacemaker (Chronic) TIA (transient ischemic attack) (Chronic) History of acoustic neuroma (Resolved) Malignant tumor spinal cord (Resolved) Surgical History S/P excision of acoustic neuroma (Resolved) Social History Preferred Language: Azeri Communication Ability: Effective Visual Impairment: Limited Hearing Ability: Use of Hearing Aid Hyperion Analyst Required: No Beliefs That Will Affect Care: None marital status: Current Living Situation: Spouse Current Living Situation Comment: uncertain. pt confused. current occupational status: disabled Feels Safe at Home: Yes Smoking Status: Unknown if ever smoked Review of Systems Review of Systems: All systems reviewed & are unremarkable except as noted in HPI & below Physical Exam Constitutional: WD/WN, vitals as above Eyes: PERRL, conjunctivae normal, anicteric sclerae ENMT: Ears: no hearing impairment Respiratory: normal respiratory effort, lungs clear to auscultation Cardiovascular: RRR, no murmur, no edema Gastrointestinal (Abdomen): normal bowel sounds, soft, nontender, no hepatosplenomegaly Skin: Wound measuring 1 x 0.6 x 0.5 cm. Wound is covered with fibrin and slough. Periwound is intact without erythema. There is moderate drainage no foul odors. Neurologic: awake; not confused Psychiatric: Orientation: oriented to person, oriented to place and cooperative Results & Data Vital Signs (Past 12 Hours) Vital Signs Temp Pulse Pulse Pulse Resp BP Pulse Ox 01/05/19 15:33 36.8 C 78 63 20 99/44 L 95 01/05/19 15:20 36.8 C 63 20 99/44 L 95 01/05/19 15:17 68 01/05/19 06:59 36.6 C 69 19 96/54 L 92 01/05/19 04:00 36.5 C 73 16 108/51 L 95 PG Care Time/CCT Total # of Minutes Spent Total Time Spent with Patient: Total time spent is greater than 50% in coordination of care (as documented) at patient's floor/unit and/or counseling patient:
--- NOTE | 2019-01-06 10:56 | Discharge Summary ---
Date of Service January 06, 2019 Admission HPI Per Admitting Provider History obtained from patient, family, and records. Patient is a fair historian. Medical history significant for chronic systolic heart failure EF 45% sp ICD, TTE 2014, AF sp PPM currently not on anticoagulation, CAD status post stent, history of aortic stenosis, chronic LBBB, hypertension, PVD, hx TIA as per , spinal cord ependymoma status post surgery, history of acoustic neuroma status post surgery, hypothyroidism, agent orange exposure, chronic anemia (baseline hemoglobin 13), history lung mass, past tobacco abuse. Recent confinement at [facility] last May 2013 for ICD firing. Patient had a mechanical fall about 2 months ago leading to back pain/bruising symptoms. No initial consultations done. Patient later confined at [facility] last month for a spine infection sp antibiotic Rx. No surgery as per family. Patient subsequently discharged to rehab and discharged back home 2 weeks ago. Few days ago patient noted by to transient confusion, slurred speech, poor urine output. Patient subsequently noted to be weaker than usual needing assistance today. Patient denies unusual chest pain, S OB, unusual cough symptoms, abdominal pain, diarrhea, dysuria. No unusual back pain, fever, chills. Hemorrhoids bleeding from time to time as per . Patient received IV Vancomycin and Zosyn at the ER Medical History as above Surgical History : Spinal cord tumor surgery, acoustic neuroma surgery, ICD/PPM Family History : Heart disease Personal/Social history : Past tobacco abuse, occasional EtOH intake, [place] War Admission Exam Per Admitting Provider Physical Exam: GENERAL: Comfortable, hard of hearing, no respiratory distress SKIN: Pallor , warm HEENT: Partial alopecia, pale palpebral conjunctivae, no ptosis, chronic facial asymmetry, dry buccal mucosa NECK : Supple, no tenderness CHEST : Decreased effort , no tenderness HEART : RRR, systolic murmur ABDOMEN: Soft, nontender BACK : Not examined EXTREMITIES : Bilateral LE swelling right greater than the left, no LE tenderness NEUROLOGIC : Coherent, chronic facial asymmetry, slightly hard of hearing, gait and stance not assessed Principal Diagnosis Generalized weakness-improved, chronic systolic heart failure, hypertension, chronic anemia, sacral decubitus Discharge Exam Constitutional well developed, well nourished and + ill appearing; no acute distress Eyes + conjunctival abnormality (Right sided ectropion of the lower lid) ENMT external ear and nose normal, oropharynx normal Neck trachea midline, no thyromegaly Respiratory normal respiratory effort; no respiratory distress Auscultation: lungs clear to auscultation bilaterally Cardiovascular Rate/Rhythm: regular rate and regular rhythm Heart Sounds: no murmur Extremities: + edema (2-3+ edema bilaterally lower legs) Gastrointestinal (Abdomen) Inspection/Auscultation: abdomen normal to inspection and normal bowel sounds Percussion/Palpation: abdomen soft Neurologic moves all extremities; no focal motor deficits Discharge Data Allergies Allergy/AdvReac Type Severity Reaction Status Date / Time No Known Allergies Allergy Verified 01/03/19 16:56 Consultations 01/03/19 19:05 ED Decision to Admit Stat 01/03/19 22:35 Consult Case Management - Discharge Planning Routine 01/04/19 11:57 Consult Wound Care Provider Routine Ordered Studies 01/03/19 16:02 CT head/brain wo con Stat 01/03/19 16:41 CT abd pelvis IV con only Stat CT angio chest PE protocol Stat 01/03/19 22:35 US venous doppler [facility] Urgent Hospital Course (1) Weakness: Presented with generalized weakness and questionable TIA-like symptoms involving speech No more episode noted while in the hospital Noted to have low-grade fever noted at the ER Could be secondary to viral illness Patient not septic. 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 hx spinal abscess status post antibiotic Rx and finished the course Has spinal wound Wound care provider will be consulted Patient and the son did not want any more surgery Appreciate wound care provider input and recommendation Has stage II-III sacral decubitus Management will be as per wound care Doubt any need for antibiotics Hypothyroidism, Euthyroid as of today's TSH Chronic anemia, hemoglobin lower than baseline of 13 last year possibly from hemorrhoidal bleed History of acoustic neuroma sp surgery History lung mass, probable malignancy, patient/family not interested in work-up Recent CT of the chest documented the lung mass Discussed with the patient and the son No further work-up on that Past tobacco abuse. DVT prophylaxis. SCDs RE bleeding hemorrhoids Full code Patient's requesting updates from providers. Ms. Oxana Garcia, contact #[phone]. Physical therapist recommended rehab Discussed with the son and the social service Patient will discharge this afternoon at home with home physical therapy Total Time Total Time Spent Total Time Spent (In Minutes): 35 minutes Total Time Includes: Examination of the Patient, Discharge Planning, Medication Reconciliation and Communication With Other Providers Discharge Plan Discharge Items Patient Disposition: Home - Home Health Services Reason For Visit: TRANSIENT CONFUSION Discharge Diagnosis: Generalized weakness-improved, chronic systolic heart failure, hypertension, chronic anemia, sacral decubitus Condition on Discharge: Fair Activity: Resume your previous activity Activity Comment: Continue home physical therapy Non-emergency contact: Primary Care Provider Call non-emergency contact if: you have any medication questions and your symptoms worsen Follow-up/Referrals: PCP,NO [Primary Care Provider] - (Please make an appointment with your primary care physician within 1 week.) Diet: Heart Healthy Addtl Attending Provider Instructions: Please take precaution to avoid falls. Continue dressings for the back wound as advised Pending Studies at Discharge: No Stand-Alone Forms: [facility] Medications and DC Order Prescriptions: New Santyl 250 unit/gram Ointment 1 applic EXT DAILY 30 Days Qty: 30 RF: 0 Continued acetaminophen 325 mg capsule 650 mg PO Q4H PRN (Reason: Pain) RF: 0 bisacodyl 10 mg suppository 10 mg ID DAILY PRN (Reason: Constipation) RF: 0 carvedilol 12.5 mg tablet 12.5 mg PO BID RF: 0 clopidogrel 75 mg tablet 75 mg PO DAILY RF: 0 digoxin 250 mcg tablet 250 mcg PO DAILY RF: 0 sennosides-docusate sodium [Senokot-S] 8.6-50 mg tablet 1 tab PO BID PRN (Reason: Constipation) RF: 0 enoxaparin [Lovenox] 40 mg/0.4 mL syringe 40 mg SQ DAILY RF: 0 lisinopril 5 mg tablet 5 mg PO DAILY RF: 0 lovastatin 10 mg tablet 10 mg PO DAILY RF: 0 mirtazapine 7.5 mg tablet 7.5 mg PO DAILY RF: 0 polyethylene glycol 3350 [Miralax] 17 gram/dose powder 8.5 gm PO DAILY PRN (Reason: Constipation) RF: 0 pravastatin 10 mg tablet 10 mg PO DAILY RF: 0 hydrocodone-acetaminophen 5-325 mg Tablet 1 tab PO Q6H PRN (Reason: Pain) RF: 0 levothyroxine 50 mcg Tablet 50 mcg PO DAILY RF: 0 rosuvastatin 20 mg Tablet 20 mg PO DAILY RF: 0 Discharge Orders: Discharge Order (Routine); Ordered 01/05/19 Ordered By: Helene Matt Admission Data Admit Date/Time: 01/04/19 11:56 Attending Provider: Helene Matt Admit Provider: Jeffery Mendoza Primary Care Provider: PCP,NO Other Providers: Jeffery Mendoza ; Adam Ferreira ; [facility] Other Interventions: Discharge Summary Assessment (RN) Last Done: 01/05/19 15:33 DC Date/Time DO NOT enter until pt leaves facility: 01/05/19 16:33
== END 2019-01-05 16:33 | disposition home health service (06) | DRG 866 ==
LOC: 2N 15:14 → ED 15:14 → 2N 21:50